=== PATIENT | male | born 1945 | race Hispanic/Latino ===

== ENCOUNTER 2020-06-17 16:46 | Observation (INO) | payer MEDICARE, OTHER ==
[~2020-06-17] VITALS: Ht 162.6 cm; Wt 77.1 kg
[2020-06-17] MEDS ORDERED: SODIUM CHLORIDE 0.9% 1000ML 1,000 ML IV STA (16:51)
--- NOTE | 2020-06-17 16:51 | Emergency Department Note ---
History of Present Illnes History of Present Illness History of Present Illness This is a 74 year old male with long h/o of PUD. Patient recently seen by [facility] with neg CT abd/pelvis scan. Patient with acute onset of GIB 2 days ago Historian: Patient Arrival Mode: Car Onset (how long ago): day(s) (2) Radiation: Reports non-radiation Severity: mild Onset quality: gradual Duration (how long): day(s) (2) Timing of current episode: constant Progression: unchanged Chronicity: new Context: Denies recent illness, Denies recent surgery, Denies recent immobilization, Denies recent travel, Denies trauma/injury, Denies new medications, Denies hx of DVT/PE, Denies non-compliance w/ medications, Denies other Relieving factors: none Exacerbating factors: none Associated symptoms: Reports weakness Previous service: tests performed, re-evaluation Past Medical/Family History Physician Review I have reviewed the patient's past medical and family history. Any updates have been documented here. Past Medical History Recent Fever: No Clinical Suspicion of Infectio: No New/Unexplained Change in Ment: No Past Medical History: Hypertension Past Surgical History: None Social History Smoking Cessation: Never Smoker Alcohol Use: None Any Illegal Drug Use: No Review of Systems Review of Systems Constitutional: Reports no symptoms EENTM: Reports no symptoms Cardiovascular: Reports no symptoms Respiratory: Reports no symptoms Gastrointestinal: Reports abdominal pain Genitourinary: Reports no symptoms Musculoskeletal: Reports no symptoms Integumentary: Reports no symptoms Neurological: Reports no symptoms Psychological: Reports no symptoms Endocrine: Reports no symptoms Hematological/Lymphatic: Reports no symptoms Physical Exam Related Data Allergies: Coded Allergies: Penicillins (Verified Allergy, Intermediate, hives/rash, 06/17/20) Triage Vital Signs Vital Signs Date Time Temp Pulse Resp B/P (MAP) Pulse Ox O2 Delivery O2 Flow Rate FiO2 06/17/20 17:01 98.6 85 16 128/62 96 Room Air 06/17/20 19:05 2.0 Vital signs reviewed: Yes Physical Exam CONSTITUTIONAL Constitutional: Present well-developed, Present obese HENT HENT: Present normocephalic, Present atraumatic, Present oropharynx clear/moist, Present nose normal HENT L/R: Present left ext ear normal, Present right ext ear normal EYES Eyes: Reports PERRL, Reports conjunctivae normal NECK Neck: Present ROM normal PULMONARY Pulmonary: Present effort normal, Present breath sounds normal CARDIOVASCULAR Cardiovascular: Present regular rhythm, Present heart sounds normal, Present capillary refill normal, Present normal rate GASTROINTESTINAL Abdominal: Present soft, Present distension, Present tender (LLQ) GENITOURINARY Genitourinary: Present exam deferred SKIN Skin: Present warm, Present dry MUSCULOSKELETAL Musculoskeletal: Present ROM normal NEUROLOGICAL Neurological: Present alert, Present oriented x 3, Present no gross motor or sensory deficits PSYCHOLOGICAL Psychological: Present mood/affect normal, Present judgement normal Results Laboratory Lab results reviewed: Yes Imaging Imaging results reviewed: Yes Impressions [place] [id number] Patient Name: CARSON DEE MR #: [id number] : 1945 Age/Sex: 74/M Req #: [id number] Adm Physician: Ordered by: SON BEEBE DO Report #: [id number] Location: ER Room/Bed: Procedure: [id number] DX/CHEST SINGLE (NOT PORTABLE) Exam Date: 06/17/20 Exam Time: 1724 REPORT STATUS: Signed EXAMINATION: CHEST SINGLE (NOT PORTABLE) INDICATION: Rectal bleeding. Upper abdominal discomfort ^ERMD ORDER ^[id number] ^1725 ^Y COMPARISON: None FINDINGS: TUBES and LINES: None. LUNGS: Lungs are well inflated. Lungs are clear. There is no evidence of pneumonia or pulmonary edema. PLEURA: No pleural effusion or pneumothorax. HEART AND MEDIASTINUM: The cardiomediastinal silhouette is unremarkable. BONES AND SOFT TISSUES: No acute osseous lesion. Soft tissues are unremarkable. UPPER ABDOMEN: Suspected retrocardiac hiatal hernia. IMPRESSION: Suspected retrocardiac hiatal hernia. Signed by: Dr. Venecia Morgan M.D. on 06/17/2020 5:44 PM Dictated By: VENECIA MORGAN MD, MD 43 Transcribed By: ESTUARDO on 06/17/201743 COPY TO: SON BEEBE DO~ [place] [address] Patient Name: CARSON DEE MR #: [id number] : 1945 Age/Sex: 74/M Req #: [id number] Adm Physician: Ordered by: SON BEEBE DO Report #: [id number] Location: ER Room/Bed: Procedure: [id number] CT/CTA ABD/PELVIS Exam Date: 06/17/20 Exam Time: 1809 REPORT STATUS: Signed EXAM: CTA OF THE ABDOMINAL AORTA AND PELVIC ARTERIES with and without IV contrast INDICATION: Rectal bleeding. Abdominal pain. Bright red blood per rectum. Left lower quadrant and flank pain. History of ulcer. COMPARISON: None. TECHNIQUE: Multi-detector CT technology was employed. CTA of the abdomen and pelvis was performed before and after the administration of IV contrast. IV CONTRAST: 100 mL of Isovue-370 ORAL CONTRAST: None COMPLICATIONS: None RADIATION DOSE: Total DLP: 2394 mGy*cm Estimated effective dose: (DLP x 0.015 x size factor) mSv CTDIvol has been reviewed. It is below the limits set by the Radiation Protocol Committee (RPC). For optimization of anatomic evaluation, multiplanar reconstruction, maximum intensity projections, and advanced 3-D off-line postprocessing were performed on a dedicated stand-alone workstation under the direct supervision of the interpreting physician. FINDINGS: Potential study limitations: None. VASCULAR WITH ADVANCED 3-D OFF-LINE POSTPROCESSING: No Abdominal aortic aneurysm is seen. The abdominal aorta is normal in course, caliber, and contour. There is no acute aortic pathology . Aortic plaques: Mild. The abdominal aorta measures: 2.8 cm at the supramesenteric segment 2.7 cm at the mesenteric segment 2.1 cm at the renal segment 1.8 cm at the mid infrarenal segment 1.6 cm at the aortic bifurcation. The celiac axis, SMA, and KARISHMA are patent. There are single renal arteries bilaterally, both of which appear patent. The pelvic arteries are normal in caliber and contour. There are mild atherosclerotic changes of the pelvic arteries. 1.2 cm at the right common iliac artery 0.9 cm at the right external iliac artery 1.2 cm at the left common iliac artery 0.9 cm at the left external iliac artery LOWER CHEST: Moderate size retrocardiac hiatal hernia. Mild chronic appearing change at the lung bases. ABDOMEN: Hypodensities scattered throughout the liver likely due to simple cysts. Hypodensities in the kidneys likely due to simple cysts. Fatty atrophy of the pancreas. The gallbladder and spleen appear normal. The adrenal glands appear normal. Both kidneys are normal in size, shape, and density. There is no abnormal mass or hydronephrosis. PELVIS: There is no significant retroperitoneal adenopathy. No free fluid or free air within the abdomen or pelvis. Scattered diverticulosis with mucosal thickening and inflammatory change in the region of the descending/sigmoid colon worrisome for early diverticulitis. No evidence of perforation or abscess. The urinary bladder appears normal. BONES: Unremarkable IMPRESSION: Scattered diverticulosis with mucosal thickening and inflammatory change in the region of the descending/sigmoid colon worrisome for early diverticulitis. No evidence of perforation or abscess. GI consultation recommended. No acute abdominal aortic pathology. Moderate size retrocardiac hiatal hernia. Signed by: Dr. Venecia Morgan M.D. on 06/17/2020 7:05 PM Dictated By: VENECIA MORGAN MD, MD 04 Transcribed By: ESTUARDO on 06/17/201904 COPY TO: SON BEEBE DO~ Procedures 12 Lead ECG Interpretation ECG Interpretation : ECG: ECG 1 Method Consultant: Interpreted by ED physician Date: Jun 17, 2020 Time: 18:37 Prior ECG tracings: reviewed Rhythm: sinus rhythm Rate: normal BPM: 89 QRS axis: normal ST segments normal: Yes T waves normal: Yes Clinical Impression: normal ECG Assessment & Plan Medical Decision Making MDM Diff Dx : GIB, varices, diverticulitis, ischemic blood ,hemorrhoids Reassessment Reassessment time: 18:37 Reassessment Patient returned from CT and noted to have oxygen desaturation to 88% on RA Assessment & Plan Final Impression: (1) Diverticulitis (2) Hypoxia Home Meds Reported Medications Ferrous Sulfate (FERROUS SULFATE) 325 Mg Tablet, 325 MG PO DAILY 06/20/20 Ciprofloxacin Hcl (CIPRO) 500 Mg Tablet, 500 MG PO BID for 7 Days, #14 TAB 06/20/20 Pantoprazole Sodium (PROTONIX) 20 Mg Tablet.dr, 40 MG PO DAILY, #30 TAB 06/18/20 Levothyroxine Sodium (LEVOTHYROXINE SODIUM) 112 Mcg Tablet, 125 MCG PO DAILY, #30 TAB 06/18/20 SON BEEBE DO Jun 17, 2020 16:51
[2020-06-17 17:28] LABS: BASOPHILS % 0.2 % (0.0-1.0); EOSINOPHILS # (AUTO) 0.2 (0.0-0.4); EOSINOPHILS % 1.8 % (0.0-6.0); HEMATOCRIT 31.7 % (38.2-49.6); HEMOGLOBIN 8.9 g/dL (14.0-18.0); LYMPHOCYTES # (AUTO) 1.7 (1.0-3.2); LYMPHOCYTES % 15.9 % (18.0-39.1); MEAN CORPUSCULAR HGB CONC 28.1 g/dL (31-35); MEAN CORPUSCULAR VOLUME 74.8 fL (81-99); MONOCYTES % 9.1 % (4.4-11.3); NEUTROPHILS # (AUTO) 7.7 (2.1-6.9); NEUTROPHILS % 72.5 % (38.7-80.0); PLATELET COUNT 251 x10e3/uL (140-360); RED BLOOD COUNT 4.24 x10e6/uL (4.3-5.7); RED CELL DISTRIBUTION WIDTH 16.4 % (11.7-14.4)
--- OUTSIDE RECORDS SUMMARY | 2020-06-17 17:36 | XMS REPORT | Continuity of Care Document ---
Author Author [facility] t Organization [facility] Address [address] [place] [address] Phone Unavailable Care Team Providers Care Insurance Writer Name Role Phone DR Jaison GTZ Attphygabriela Unavailable DR Jaison GTZ Admphys Unavailable Payers Payer Name Policy Type Policy Number Effective Date Expiration Date S ource Problems This patient has no known problems. Allergies, Adverse Reactions, Alerts Allergy Name Allergy Type Status Severity Reaction(s) Onset Date Inacti ve Date Treating Clinician Comments Source No Known Allergies DA Active U 2020-05-29 00:00:00 [facility] Penicillins DA Active U 2018-06-23 00:00:00 [facility] Penicillins DA Active U 2016-11-09 00:00:00 [facility] Medications This patient has no known medications. Procedures This patient has no known procedures. Encounters Start Date/Time End Date/Time Encounter Type Admission Type Attendi [facility] Care Department Encounter ID Source 2020-06-15 13:27:00 2020-06-15 17:03:00 Outpatient E LEODAN GTZ [facility] [id number] [facility] Results Test Description Test Time Test Comments Results Result Comments Source CBC (INCLUDES AUTOMATED DIFFERENTIAL) * 2020-06-15 16:49:00 Test Item WBC (test code = WBC) 15.8 10\\S\\3/uL 4.5-11.0 H RBC (test code = RBC) 4.77 10\\S\\6/uL 3.80-5.80 HGB (test code = HBG) 10.4 g/dL 14.0-18.0 L HCT (test code = HCT) 34.2 % 35.0-46.0 L MCV (test code = MCV) 71.8 fL 80.0-94.0 L MCH (test code = MCH) 21.8 pg 27.0-31.0 L MCHC (test code = MCHC) 30.4 g/dL 32.0-36.0 L RDW (test code = RDW) 16.0 % 11.5-14.5 H PLT (test code = PLT) 337 10\\S\\3/uL 130-400 MPV (test code = OMPV) 7.7 fL 6.2-10.2 NEUTROP # (test code = NE#) 14.1 10\\S\\3/uL 2.0-8.0 H LYMPH # (test code = LY#) 0.9 10\\S\\3/uL 1.2-4.0 L MID # (test code = GMID#) 0.8 10\\S\\3/uL 0.0-1.1 GRAN % (test code = GRA%) 89.0 % 35.0-73.0 H LYMPH % (test code = GLY%) 5.7 % 20.0-55.0 L MID % (test code = GMID%) 5.3 % 0.0-10.0 D-DIMER TRIAGE OW2020-06-15 14:45:00* Test Item Value Reference Range Interpretation Comments D-DIMER (test code = GDDI) 1200 ng/mL D-DU <=599 H D-DIMER COMMENT (test code = DDCOM) *Level to rule out DVT or PE: <235 ng/mL D-DU* GENERAL CHEMISTRY 13 *OW* [id number] 14:20:00* Test Item Value Reference Range Interpretation Comments GLUCOSE (test code = GGUL) 128 mg/dL 73-118 H BUN (test code = GBUN) 18 mg/dL 7-22 CREATININE (test code = GCRE) 0.8 mg/dL 0.6-1.2 URIC ACID (test code = GUA) 4.9 mg/dL 3.6-8.0 CALCIUM (test code = GCL+) 8.4 mg/dL 8.0-10.3 ALBUMIN (test code = GALB) 3.8 g/dL 3.5-5.5 PROTEIN (test code = GTP) 6.9 g/dL 6.4-8.1 ALT (test code = GALT) 11 U/L 10-47 AST (test code = CHAZ) 23 U/L 11-38 ALK PHOS (test code = GALP) 77 U/L 53-128 BILI TOTAL (test code = GTBIL) 0.6 mg/dL 0.2-1.6 GGT (test code = GGGT) 9 U/L 5-65 AMYLASE (test code = GAMY) 46 U/L 14-97 PROTHROMBIN TIME i-STAT OW2020-06-15 14:08:00* Test Item Value Reference Range Interpretation Comments PT (test code = PT1) <10.0 s 10.0-13.0 INR (test code = INR) 2.5 INRH (test code = INRH) SUGGESTED THERAPEU TIC RANGE FOR INR: 2.5 - 3.5 For Patients with Prosthetic Valves or Patients with recurrent Thromboembolic Events 2.0 - 3.0 For Most Other Applications TROPONIN I OW2020-06-15 14:08:00* Test Item Value Reference Range Interpretation Comments TROPONIN I (test code = A84) <0.050 ng/mL 0.000-0.050 MetyLyte 8 Panel *OW* [id number] 14:08:00* Test Item Value Reference Range Interpretation Comments GLUCOSE (test code = GGUL) 126 mg/dL 73-118 H BUN (test code = GBUN) 17 mg/dL 7-22 CREATININE (test code = GCRE) 1.1 mg/dL 0.6-1.2 CK TOTAL (test code = GCK) 67 U/L 39-380 SODIUM (test code = GNA+) 138 mmol/L 128-145 POTASSIUM (test code = GK+) 3.7 mmol/L 3.6-5.1 CHLORIDE (test code = GCL-) 108 mmol/L 98-108 TCO2 (test code = GTC02) 27 mmol/L 18-33 BRAIN NATRIURETIC PEPTIDE OW2020-06-15 14:04:00* Test Item Value Reference Range Interpretation Comments BNP (test code = OBNP) 5 pg/mL <=100 CBC (INCLUDES AUTOMATED DIFFERENTIAL) *2020-06-15 13:50:00* Test Item Value Reference Range Interpretation Comments WBC (test code = WBC) 12.7 10\\S\\3/uL 4.5-11.0 H RBC (test code = RBC) 4.91 10\\S\\6/uL 3.80-5.80 HGB (test code = HBG) 10.6 g/dL 14.0-18.0 L HCT (test code = HCT) 35.1 % 35.0-46.0 MCV (test code = MCV) 71.5 fL 80.0-94.0 L MCH (test code = MCH) 21.6 pg 27.0-31.0 L MCHC (test code = MCHC) 30.2 g/dL 32.0-36.0 L RDW (test code = RDW) 16.2 % 11.5-14.5 H PLT (test code = PLT) 327 10\\S\\3/uL 130-400 MPV (test code = OMPV) 8.0 fL 6.2-10.2 NEUTROP # (test code = NE#) 11.0 10\\S\\3/uL 2.0-8.0 H LYMPH # (test code = LY#) 1.0 10\\S\\3/uL 1.2-4.0 L MID # (test code = GMID#) 0.7 10\\S\\3/uL 0.0-1.1 GRAN % (test code = GRA%) 86.9 % 35.0-73.0 H LYMPH % (test code = GLY%) 7.7 % 20.0-55.0 L MID % (test code = GMID%) 5.4 % 0.0-10.0 - CT ABD PELVIS [id number] 21:13:00 Name: CARSON DEE [facility] : 1945 Age/S: 74 / M [address] Unit #: [id number] Loc: [place] [address] Phys: Tripp Da Silva MD Acct: [id number] Dis Date: Status: REG ER PHONE #: [phone] Exam Date: 05/29/20202057 FAX #: [phone] Reason: RLQ pain EXAMS: CPT CODE: [id number] CT ABD PELVIS W/CONT 42373 REASON FOR EXAM: RLQ pain EXAM ORDER DATE: 05/29/2020 7:53 PM Ordering: Tripp Da Silva MD Attending:Tripp Da Silva MD Location: PROCEDURE: - CT ABD PELVIS W/CONT COMPARISON: FINDINGS: CT images of the abdomen and pelvis were obtained with IV and without oral contrast at 5mm. Dose modulation, iterative reconstruction, and/or weight based adjustment of the MA/KV was utilized to reduce the radiation dose to as low as reasonably achievable. Intravenous contrast: 100cc of Omnipaque 370. The spleen, pancreas are grossly within normal limits. Multiple small hypodensities inin suggestive of hepatic cyst with the largest cyst in the right lobe measuring 3 cm The gallbladder is unremarkable by CT Small bilateral renal cysts (2 cm). The urinary bladder is unremarkable. The colon, small bowel, and stomach are within normal limits without evidence of obstruction. The appendix is unremarkable. No evidence of free air or free fluid. IMPRESSION: Moderate-sized hiatal hernia. Diffuse sigmoid colon diverticulosis without evidence of acute diverticulitis at 2113 Reported and signed by: Pato Liz M.D. PAGE 1 Signed Report (CONTINUED) Name: CARSON DEE [facility] : 1945 Age/S: 74 / M [address] [facility] Unit #: [id number] Loc: [place] [address] Phys: Tripp Da Silva MD Acct: [id number] Dis Date: Status: R EG ER PHONE #: [phone] Exam Date: 05/06 FAX #: [phone] Reason: RLQ pain EXAMS: CPT CODE: [id number] CT ABD PELVIS W/CONT 7 4177 <Continued> CC: Etienne Iqbal DO; Tripp Da Silva MD Technologist:Grecia Paul RT(R); ADRIAN Carter CTDI: DLP: Trnscb Date/Time: 05/29/2020 (2112) [email or web address] Orig Print D/T: S: 05/29/2020 (2115) PAGE 2 Signed Report - CT ABD PELVIS [id number] 21:13:00 Name: CARSON DEE [facility] : 1945 Age/S: 74 / M [address] Unit #: [id number] Loc: [place] [address] Phys: Tripp Da Silva MD Acct: [id number] Dis Date: Status: DEP ER PHONE #: [phone] Exam Date: 05/29/20202057 FAX #: [phone] Reason: RLQ pain EXAMS: CPT CODE: [id number] CT ABD PELVIS W/CONT 07434 REASON FOR EXAM: RLQ pain EXAM ORDER DATE: 05/29/2020 7:53 PM Ordering: Tripp Da Silva MD Attending:Tripp Da Silva MD Location: PROCEDURE: - CT ABD PELVIS W/CONT COMPARISON: FINDINGS: CT images of the abdomen and pelvis were obtained with IV and without oral contrast at 5mm. Dose modulation, iterative reconstruction, and/or weight based adjustment of the MA/KV was utilized to reduce the radiation dose to as low as reasonably achievable. Intravenous contrast: 100cc of Omnipaque 370. The spleen, pancreas are grossly within normal limits. Multiple small hypodensities inin suggestive of hepatic cyst with the largest cyst in the right lobe measuring 3 cm The gallbladder is unremarkable by CT Small bilateral renal cysts (2 cm). The urinary bladder is unremarkable. The colon, small bowel, and stomach are within normal limits without evidence of obstruction. The appendix is unremarkable. No evidence of free air or free fluid. IMPRESSION: Moderate-sized hiatal hernia. Diffuse sigmoid colon diverticulosis without evidence of acute diverticulitis at 2113 Reported and signed by: Pato Liz M.D. PAGE 1 Signed Report (CONTINUED) Name: CARSON DEE [facility] : 1945 Age/S: 74 / M [address] [facility] Unit #: [id number] Loc: [place] [address] Phys: Tripp Da Silva MD Acct: [id number] Dis Date: Status: D EP ER PHONE #: [phone] Exam Date: 05/06 FAX #: [phone] Reason: RLQ pain EXAMS: CPT CODE: [id number] CT ABD PELVIS W/CONT 7 417 <Continued> CC: Etienne Iqbal DO; Tripp Da Silva MD Technologist:Grecia Paul RT(R); ADRIAN Carter CTDI: DLP: Trnscb Date/Time: 05/29/2020 (2112) [email or web address] Orig Print D/T: S: 05/29/2020 (2115) PAGE 2 Signed Report BASIC METABOLIC [id number] 20:14:00* Test Item Value Reference Range Interpretation Comments SODIUM (test code = NA) 140 mmol/L 136-145 N POTASSIUM (test code = K) 3.9 mmol/L 3.5-5.1 N CHLORIDE (test code = CL) 106.0 mmol/L 98-107 N CARBON DIOXIDE (test code = CO2) 32.0 mmol/L 21-32 N ANION GAP (test code = GAP) 5.9 10-20 L GLUCOSE (test code = GLU) 97 mg/dL 74-106 N BLOOD UREA NITROGEN (test code = BUN) 13 mg/dL 7-18 N GLOMERULAR FILTRATION RATE (test code = GFR) > 60 mL/min >=60 Estimated GFR by using Modified MDRD formula.Chronic kidney disease is defined as either kidney damageor GFR <60 mL/min/1.73 m2 for >3 months. CREATININE (test code = CREAT) 0.80 mg/dL 0.7-1.3 N BUN/CREATININE RATIO (test code = BUN/CREA) 15.7 10-20 N CALCIUM (test code = CA) 8.5 mg/dL 8.5-10.1 N HEPATIC FUNCTION [id number] 20:14:00* Test Item Value Reference Range Interpretation Comments TOTAL PROTEIN (test code = PROT) 7.0 gram/dL 6.4-8.2 N ALBUMIN (test code = ALB) 3.3 g/dL 3.4-5.0 L GLOBULIN (test code = GLOB) 3.7 gram/dL 2.7-4.2 N ALBUMIN/GLOBULIN RATIO (test code = A/G) 0.9 0.75-1.50 N BILIRUBIN TOTAL (test code = BILT) 0.20 mg/dL 0.0-1.0 N BILIRUBIN DIRECT (test code = BILD) 0.07 mg/dL 0.0-0.20 N SGOT/AST (test code = AST) 15 IUnit/L 15-37 N SGPT/ALT (test code = ALT) 21 IUnit/L 12-78 N ALKALINE PHOSPHATASE TOTAL (test code = ALKP) 94 IUnit/L 45-117 N Note change in reference range due to change in reagent. [id number] 20:14:00* Test Item Value Reference Range Interpretation Comments LIPASE (test code = LIP) 118 U/L 73.0-393.0 N BASIC METABOLIC [id number] 20:07:00* Test Item Value Reference Range Interpretation Comments SODIUM (test code = NA) 140 mmol/L 136-145 N POTASSIUM (test code = K) 3.9 mmol/L 3.5-5.1 N CHLORIDE (test code = CL) 106.0 mmol/L 98-107 N CARBON DIOXIDE (test code = CO2) mmol/L 21-32 ANION GAP (test code = GAP) 10-20 GLUCOSE (test code = GLU) mg/dL 74-106 BLOOD UREA NITROGEN (test code = BUN) mg/dL 7-18 GLOMERULAR FILTRATION RATE (test code = GFR) mL/min >=60 CREATININE (test code = CREAT) mg/dL 0.7-1.3 BUN/CREATININE RATIO (test code = BUN/CREA) 10-20 CALCIUM (test code = CA) mg/dL 8.5-10.1 HEPATIC FUNCTION [id number] 20:07:00* Test Item Value Reference Range Interpretation Comments TOTAL PROTEIN (test code = PROT) gram/dL 6.4-8.2 ALBUMIN (test code = ALB) g/dL 3.4-5.0 GLOBULIN (test code = GLOB) gram/dL 2.7-4.2 ALBUMIN/GLOBULIN RATIO (test code = A/G) 0.75-1.50 BILIRUBIN TOTAL (test code = BILT) mg/dL 0.0-1.0 BILIRUBIN DIRECT (test code = BILD) mg/dL 0.0-0.20 SGOT/AST (test code = AST) IUnit/L 15-37 SGPT/ALT (test code = ALT) IUnit/L 12-78 ALKALINE PHOSPHATASE TOTAL (test code = ALKP) IUnit/L 45-117 [id number] 20:07:00* Test Item Value Reference Range Interpretation Comments LIPASE (test code = LIP) U/L 73.0-393.0 CBC W/O [id number] 20:01:00* Test Item Value Reference Range Interpretation Comments WHITE BLOOD CELL (test code = WBC) 6.5 K/mm3 4.5-12.5 N RED BLOOD CELL (test code = RBC) 4.74 mill/mm3 4.0-5.8 N HEMOGLOBIN (test code = HGB) 10.0 gram/dL 13.0-17.5 L HEMATOCRIT (test code = HCT) 35.6 % 42.0-52.0 L MEAN CELL VOLUME (test code = MCV) 75.1 fL 80-98 L MEAN CELL HGB (test code = MCH) 21.1 picogram 27.0-33.0 L MEAN CELL HGB CONCETRATION (test code = MCHC) 28.1 gram/dL 33.0-36. 0 L RED CELL DISTRIBUTION WIDTH (test code = RDW) 15.9 % 11.6-16. 2 N PLATELET COUNT (test code = PLT) 277 K/mm3 150-450 N MEAN PLATELET VOLUME (test code = MPV) 10.1 fL 6.7-11.0 N - XR CHEST 2 [id number] 10:00:00 Name: BIENVENIDO DEE [facility] : 1945 Age/S:73 /M [address] [facility] Unit#:[id number] Loc: [place] [address] Phys: Gerald De Los Santos MD Dis Date: PHONE #: [phone] Status: REG ER FAX #: [phone] Exam Date: 02/12/2019 Reason: cough EXAMS: CPT CODE: [id number] XR CHEST 2 V 06263 HISTORY: Cough. COMPARISON: September 16, 2017. AP and lateral view of the chest: No acute infiltrates, effusion or congestion. Cardiac and the mediastinal silhouette are normal. Scarring. Moderate sized retrocardiac hiatal hernia with air-fluid level. DJD of the dorsal spine. IMPRESSION: No acute infiltrates, effusion or congestion. Moderate retrocardiac hiatal hernia with air-fluid level. at 1000 Reported and signed by: Demarco Manzo M.D. CC: Gerald De Los Santos MD Technologist: Nithya Mtz Trnscrpt Data: 02/12/2019 (1000) [email or web address] Orig Print D/T: S: 02/12/2019 (1003) PAGE 1 Signed Report URINALYSIS COMPLETE 2018-11-05 11:53:00* Test Item Value Reference Range Interpretation Comments UA COLOR (test code = COLU) YELLOW YELLOW UA APPEARANCE (test code = APPU) CLEAR CLEAR UA GLUCOSE DIPSTICK (test code = DGLUU) NORMAL mg/dL NEGATIVE UA BILIRUBIN DIPSTICK (test code = BILU) NEGATIVE mg/dL NEGATIVE UA KETONE DIPSTICK (test code = KETU) neg mg/dL NEGATIVE UA SPECIFIC GRAVITY (test code = SGU) 1.005 1.001-1.035 UA BLOOD DIPSTICK (test code = MARION) 25 (1+) Clayton/uL NEGATIVE A UA PH DIPSTICK (test code = SHIRAZ) 7.0 5.0-8.0 UA PROTEIN DIPSTICK (test code = PROU) neg mg/dL Neg-15 UA UROBILINIOGEN DIPSTICK (test code = URO) norm mg/dL 0.0-0.2 UA NITRITE DIPSTICK (test code = MARIE) NEGATIVE NEGATIVE UA LEUKOCYTE ESTERASE DIPSTICK (test code = LEUU) NEGATIVE uL NEGA TIVE UA WBC (test code = WBCU) NONE SEEN per HPF 0-5 IN SOME URINARY TRACT INFECTIONS THERE MAY NOT BE ENOUGHWBCs IN THE URINE TO TRIGGER AN AUTOMATIC (REFLEX) URINECULTURE. A SEPERATE ORDER FOR URINE CULTURE IS RECOMMENDEDIF THERE IS STRONG SUPPORT FOR A URINARY TRACT INFECTIONCLINICALLY. UA RBC (test code = RBCU) 3-5 per HPF 0-5 A UA EPITHELIAL CELLS (test code = EPIU) Rare (0-1/hpf) per HPF Few UA BACTERIA (test code = BACU) TRACE per HPF NONE URINALYSIS W/O [id number] 11:53:00* Test Item Value Reference Range Interpretation Comments UA MICROSCOPIC NEEDED? (test code = UAMICRO) YES URINALYSIS [id number] 11:41:00* Test Item Value Reference Range Interpretation Comments UA COLOR (test code = COLU) YELLOW YELLOW UA APPEARANCE (test code = APPU) CLEAR UA GLUCOSE DIPSTICK (test code = DGLUU) NORMAL mg/dL NEGATIVE UA BILIRUBIN DIPSTICK (test code = BILU) NEGATIVE mg/dL NEGATIVE UA KETONE DIPSTICK (test code = KETU) neg mg/dL NEGATIVE UA SPECIFIC GRAVITY (test code = SGU) 1.005 1.001-1.035 UA BLOOD DIPSTICK (test code = MARION) 25 (1+) Clayton/uL NEGATIVE A UA PH DIPSTICK (test code = SHIRAZ) 7.0 5.0-8.0 UA PROTEIN DIPSTICK (test code = PROU) neg mg/dL Neg-15 UA UROBILINIOGEN DIPSTICK (test code = URO) norm mg/dL 0.0-0.2 UA NITRITE DIPSTICK (test code = MARIE) NEGATIVE NEGATIVE UA LEUKOCYTE ESTERASE DIPSTICK (test code = LEUU) NEGATIVE uL NEGA TIVE UA WBC (test code = WBCU) per HPF 0-5 URINALYSIS W/O [id number] 11:41:00* Test Item Value Reference Range Interpretation Comments UA MICROSCOPIC NEEDED? (test code = UAMICRO) URINALYSIS [id number] 11:41:00* Test Item Value Reference Range Interpretation Comments UA COLOR (test code = COLU) YELLOW YELLOW UA APPEARANCE (test code = APPU) CLEAR UA GLUCOSE DIPSTICK (test code = DGLUU) NORMAL mg/dL NEGATIVE UA BILIRUBIN DIPSTICK (test code = BILU) NEGATIVE mg/dL NEGATIVE UA KETONE DIPSTICK (test code = KETU) neg mg/dL NEGATIVE UA SPECIFIC GRAVITY (test code = SGU) 1.005 1.001-1.035 UA BLOOD DIPSTICK (test code = MARION) 25 (1+) Clayton/uL NEGATIVE A UA PH DIPSTICK (test code = SHIRAZ) 7.0 5.0-8.0 UA PROTEIN DIPSTICK (test code = PROU) neg mg/dL Neg-15 UA UROBILINIOGEN DIPSTICK (test code = URO) norm mg/dL 0.0-0.2 UA NITRITE DIPSTICK (test code = MARIE) NEGATIVE NEGATIVE UA LEUKOCYTE ESTERASE DIPSTICK (test code = LEUU) NEGATIVE uL NEGA TIVE UA WBC (test code = WBCU) per HPF 0-5 URINALYSIS W/O [id number] 11:41:00* Test Item Value Reference Range Interpretation Comments UA MICROSCOPIC NEEDED? (test code = UAMICRO) - CT HEAD/BRAIN W/O [id number] 11:10:00 Name: CARSON DEE [facility] : 1945 Age/S: 73 / M [address] [facility] Unit #: [id number] Loc: [place] [address] Phys: Gerald De Los Santos MD Acct: [id number] Dis Date: Status: PRE ER PHONE #: [phone] Exam Date: 11/05/2018 1103 FAX #: [phone] Reason: dizzy EXAMS: CPT CODE: [id number] CT HEAD/BRAIN W/O CONT 35788 HISTORY: Dizziness. COMPARISON: None available. CT brain without contrast: Automated exposure control. No acute intracranial bleeds or extra-axial collections are noted. No acute territorial vascular infarction is noted. The sulci, gyri, ventricles and subarachnoid spaces and the basilar cisterns are normal for patient's age. No herniation or hydrocephalus or midline shift is noted. Mild periventricular ischemic gliosis is noted. Age-appropriate atrophy is noted as well. Portions of the visualized paranasal sinuses are normal. No obvious bony calvarial defect is noted. IMPRESSION: No acute intracranial bleeds or extra-axial collections. No acute territorial vascular infarction. No herniation or hydroceph alus or midline shift. 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 at 1110 Reported and signed by: Junior Manzo M.D. CC: Gerald De Los Santos MD Technologist:Nithya Mtz CTDI: DLP: Trnscb Date/Time: 11/05/2018 (1110) [id number] Orig Print D/T: S: 11/05/2018 (1498) CTDI: DLP: PAGE 1 Signed Report COMPREHENSIVE METABOLIC PANEL 2018-11-05 11:04:00* Test Item Value Reference Range Interpretation Comments SODIUM (test code = NA) 141 mmol/L 135-148 N POTASSIUM (test code = K) 3.9 mmol/L 3.5-5.1 N CHLORIDE (test code = CL) 105 mmol/L 101-109 N CARBON DIOXIDE (test code = CO2) 29.9 mmol/L 21-32 N ANION GAP (test code = GAP) 10 mmol/L 10-20 N GLUCOSE (test code = GLU) 84 mg/dL 74-106 N BLOOD UREA NITROGEN (test code = BUN) 17 mg/dL 3-21 N CREATININE (test code = CREAT) 0.90 mg/dL 0.55-1.3 N BUN/CREATININE RATIO (test code = BUN/CREA) 18.9 10-20 N TOTAL PROTEIN (test code = PROT) 7.1 g/dL 6.5-8.4 N ALBUMIN (test code = ALB) 3.4 g/dL 3.4-4.8 N GLOBULIN (test code = GLOB) 3.7 G/DL 1-10 N ALBUMIN/GLOBULIN RATIO (test code = A/G) 0.9 RATIO 0.75-1.50 N CALCIUM (test code = CA) 8.3 mg/dL 8.4-10.2 L BILIRUBIN TOTAL (test code = BILT) 0.40 mg/dL 0.0-1.0 N SGOT/AST (test code = AST) 25 U/L 6-32 N SGPT/ALT (test code = ALT) 26 U/L 12-78 N N ote: Change in REFERENCE RANGE due to new reagent method. ALKALINE PHOSPHATASE TOTAL (test code = ALKP) 82 U/L 38-126 N [id number] 11:04:00* Test Item Value Reference Range Interpretation Comments TROPONIN-I (test code = TROPI) 0.05 ng/mL 0.00-0.056 N CBC W/AUTO [id number] 11:03:00* Test Item Value Reference Range Interpretation Comments WHITE BLOOD CELL (test code = WBC) 6.4 K/mm3 4.5-12.5 N RED BLOOD CELL (test code = RBC) 4.52 mill/mm3 4.0-5.8 N HEMOGLOBIN (test code = HGB) 9.0 gram/dL 13.0-17.5 L HEMATOCRIT (test code = HCT) 31.2 % 42.0-52.0 L MEAN CELL VOLUME (test code = MCV) 69.0 fL 80-98 L MEAN CELL HGB (test code = MCH) 19.9 picogram 27.0-33.0 L MEAN CELL HGB CONCETRATION (test code = MCHC) 28.8 gram/dL 33.0-36. 0 L RED CELL DISTRIBUTION WIDTH (test code = RDW) 17.9 % 11.6-16. 2 H RED CELL DISTRIBUTION WIDTH SD (test code = RDW-SD) 44.3 fL 39 .2-49.5 N PLATELET COUNT (test code = PLT) 287 K/mm3 150-450 N MEAN PLATELET VOLUME (test code = MPV) 9.7 fL 6.7-11.0 N NEUTROPHIL % (test code = NT%) 61.3 % 39.0-69.0 N LYMPHOCYTE % (test code = LY%) 25.0 % 25.0-55.0 N MONOCYTE % (test code = MO%) 11.2 % 0.0-10.0 H EOSINOPHIL % (test code = EO%) 2.3 % 0.0-5.0 N BASOPHIL % (test code = BA%) 0.2 % 0.0-1.0 N NEUTROPHIL # (test code = NT#) 3.94 K/mm3 1.8-7.7 N LYMPHOCYTE # (test code = LY#) 1.61 K/mm3 1.0-5.0 N MONOCYTE # (test code = MO#) 0.72 K/mm3 0-0.8 N EOSINOPHIL # (test code = EO#) 0.15 K/mm3 0.0-0.5 N BASOPHIL # (test code = BA#) 0.01 K/mm3 0.0-0.2 N MANUAL DIFF REQUIRED (test code = MDIFF) NO, ONLY SCAN NEEDED DIFFERENTIAL [id number] 11:03:00* Test Item Value Reference Range Interpretation Comments STAIN ACCEPTABILITY (test code = STN ACCEPTABLE) STAIN ACCEPTABLE HYPOCHROMIA (test code = HYPO) 1+ POIKILOCYTOSIS (test code = POIK) 1+ ANISOCYTOSIS (test code = ANISO) 1+ MICROCYTOSIS (test code = MICR) 1+ ELLIPTOCYTES (test code = ELL) 1+ PLATELET ESTIMATE (test code = PLTEST) ADEQUATE PLATELET MORPHOLOGY (test code = PLTMORPH) SIZE VARIABLE CBC W/AUTO [id number] 11:02:00* Test Item Value Reference Range Interpretation Comments WHITE BLOOD CELL (test code = WBC) 6.4 K/mm3 4.5-12.5 N RED BLOOD CELL (test code = RBC) 4.52 mill/mm3 4.0-5.8 N HEMOGLOBIN (test code = HGB) 9.0 gram/dL 13.0-17.5 L HEMATOCRIT (test code = HCT) 31.2 % 42.0-52.0 L MEAN CELL VOLUME (test code = MCV) 69.0 fL 80-98 L MEAN CELL HGB (test code = MCH) 19.9 picogram 27.0-33.0 L MEAN CELL HGB CONCETRATION (test code = MCHC) 28.8 gram/dL 33.0-36. 0 L RED CELL DISTRIBUTION WIDTH (test code = RDW) 17.9 % 11.6-16. 2 H RED CELL DISTRIBUTION WIDTH SD (test code = RDW-SD) 44.3 fL 39 .2-49.5 N PLATELET COUNT (test code = PLT) 287 K/mm3 150-450 N MEAN PLATELET VOLUME (test code = MPV) 9.7 fL 6.7-11.0 N NEUTROPHIL % (test code = NT%) 61.3 % 39.0-69.0 N LYMPHOCYTE % (test code = LY%) 25.0 % 25.0-55.0 N MONOCYTE % (test code = MO%) 11.2 % 0.0-10.0 H EOSINOPHIL % (test code = EO%) 2.3 % 0.0-5.0 N BASOPHIL % (test code = BA%) 0.2 % 0.0-1.0 N NEUTROPHIL # (test code = NT#) 3.94 K/mm3 1.8-7.7 N LYMPHOCYTE # (test code = LY#) 1.61 K/mm3 1.0-5.0 N MONOCYTE # (test code = MO#) 0.72 K/mm3 0-0.8 N EOSINOPHIL # (test code = EO#) 0.15 K/mm3 0.0-0.5 N BASOPHIL # (test code = BA#) 0.01 K/mm3 0.0-0.2 N MANUAL DIFF REQUIRED (test code = MDIFF) NO, ONLY SCAN NEEDED DIFFERENTIAL [id number] 11:02:00* Test Item Value Reference Range Interpretation Comments STAIN ACCEPTABILITY (test code = STN ACCEPTABLE) HYPOCHROMIA (test code = HYPO) POIKILOCYTOSIS (test code = POIK) ANISOCYTOSIS (test code = ANISO) MICROCYTOSIS (test code = MICR) PLATELET ESTIMATE (test code = PLTEST) PLATELET MORPHOLOGY (test code = PLTMORPH) COMPREHENSIVE METABOLIC [id number] 10:49:00* Test Item Value Reference Range Interpretation Comments SODIUM (test code = NA) 141 mmol/L 135-148 N POTASSIUM (test code = K) 3.9 mmol/L 3.5-5.1 N CHLORIDE (test code = CL) 105 mmol/L 101-109 N CARBON DIOXIDE (test code = CO2) 29.9 mmol/L 21-32 N ANION GAP (test code = GAP) 10 mmol/L 10-20 N GLUCOSE (test code = GLU) 84 mg/dL 74-106 N BLOOD UREA NITROGEN (test code = BUN) 17 mg/dL 3-21 N CREATININE (test code = CREAT) 0.90 mg/dL 0.55-1.3 N BUN/CREATININE RATIO (test code = BUN/CREA) 18.9 10-20 N TOTAL PROTEIN (test code = PROT) gram/dL 6.4-8.2 ALBUMIN (test code = ALB) g/dL 3.4-5.0 GLOBULIN (test code = GLOB) g/dL 2.7-4.2 ALBUMIN/GLOBULIN RATIO (test code = A/G) 0.75-1.50 CALCIUM (test code = CA) 8.3 mg/dL 8.4-10.2 L BILIRUBIN TOTAL (test code = BILT) mg/dL 0.2-1.2 SGOT/AST (test code = AST) IUnit/L 15-37 SGPT/ALT (test code = ALT) U/L 10-69 ALKALINE PHOSPHATASE TOTAL (test code = ALKP) IUnit/L 45-117 [id number] 10:49:00* Test Item Value Reference Range Interpretation Comments TROPONIN-I (test code = TROPI) ng/mL 0-0.045 CBC W/AUTO [id number] 10:44:00* Test Item Value Reference Range Interpretation Comments WHITE BLOOD CELL (test code = WBC) 6.4 K/mm3 4.5-12.5 N RED BLOOD CELL (test code = RBC) 4.52 mill/mm3 4.0-5.8 N HEMOGLOBIN (test code = HGB) 9.0 gram/dL 13.0-17.5 L HEMATOCRIT (test code = HCT) 31.2 % 42.0-52.0 L MEAN CELL VOLUME (test code = MCV) 69.0 fL 80-98 L MEAN CELL HGB (test code = MCH) 19.9 picogram 27.0-33.0 L MEAN CELL HGB CONCETRATION (test code = MCHC) 28.8 gram/dL 33.0-36. 0 L RED CELL DISTRIBUTION WIDTH (test code = RDW) 17.9 % 11.6-16. 2 H RED CELL DISTRIBUTION WIDTH SD (test code = RDW-SD) 44.3 fL 39 .2-49.5 N PLATELET COUNT (test code = PLT) 287 K/mm3 150-450 N MEAN PLATELET VOLUME (test code = MPV) 9.7 fL 6.7-11.0 N NEUTROPHIL % (test code = NT%) 61.3 % 39.0-69.0 N LYMPHOCYTE % (test code = LY%) 25.0 % 25.0-55.0 N MONOCYTE % (test code = MO%) 11.2 % 0.0-10.0 H EOSINOPHIL % (test code = EO%) 2.3 % 0.0-5.0 N BASOPHIL % (test code = BA%) 0.2 % 0.0-1.0 N NEUTROPHIL # (test code = NT#) 3.94 K/mm3 1.8-7.7 N LYMPHOCYTE # (test code = LY#) 1.61 K/mm3 1.0-5.0 N MONOCYTE # (test code = MO#) 0.72 K/mm3 0-0.8 N EOSINOPHIL # (test code = EO#) 0.15 K/mm3 0.0-0.5 N BASOPHIL # (test code = BA#) 0.01 K/mm3 0.0-0.2 N MANUAL DIFF REQUIRED (test code = MDIFF) NO, ONLY SCAN NEEDED DIFFERENTIAL [id number] 10:44:00* Test Item Value Reference Range Interpretation Comments STAIN ACCEPTABILITY (test code = STN ACCEPTABLE) CABOT RINGS (test code = CAB) MORPHOLOGY COMMENT (test code = MOC) PLATELET ESTIMATE (test code = PLTEST) PLATELET MORPHOLOGY (test code = PLTMORPH) CBC W/AUTO [id number] 10:44:00* Test Item Value Reference Range Interpretation Comments WHITE BLOOD CELL (test code = WBC) 6.4 K/mm3 4.5-12.5 N RED BLOOD CELL (test code = RBC) 4.52 mill/mm3 4.0-5.8 N HEMOGLOBIN (test code = HGB) 9.0 gram/dL 13.0-17.5 L HEMATOCRIT (test code = HCT) 31.2 % 42.0-52.0 L MEAN CELL VOLUME (test code = MCV) 69.0 fL 80-98 L MEAN CELL HGB (test code = MCH) 19.9 picogram 27.0-33.0 L MEAN CELL HGB CONCETRATION (test code = MCHC) 28.8 gram/dL 33.0-36. 0 L RED CELL DISTRIBUTION WIDTH (test code = RDW) 17.9 % 11.6-16. 2 H RED CELL DISTRIBUTION WIDTH SD (test code = RDW-SD) 44.3 fL 39 .2-49.5 N PLATELET COUNT (test code = PLT) 287 K/mm3 150-450 N MEAN PLATELET VOLUME (test code = MPV) 9.7 fL 6.7-11.0 N NEUTROPHIL % (test code = NT%) 61.3 % 39.0-69.0 N LYMPHOCYTE % (test code = LY%) 25.0 % 25.0-55.0 N MONOCYTE % (test code = MO%) 11.2 % 0.0-10.0 H EOSINOPHIL % (test code = EO%) 2.3 % 0.0-5.0 N BASOPHIL % (test code = BA%) 0.2 % 0.0-1.0 N NEUTROPHIL # (test code = NT#) 3.94 K/mm3 1.8-7.7 N LYMPHOCYTE # (test code = LY#) 1.61 K/mm3 1.0-5.0 N MONOCYTE # (test code = MO#) 0.72 K/mm3 0-0.8 N EOSINOPHIL # (test code = EO#) 0.15 K/mm3 0.0-0.5 N BASOPHIL # (test code = BA#) 0.01 K/mm3 0.0-0.2 N MANUAL DIFF REQUIRED (test code = MDIFF) NO, ONLY SCAN NEEDED DIFFERENTIAL [id number] 10:44:00* Test Item Value Reference Range Interpretation Comments STAIN ACCEPTABILITY (test code = STN ACCEPTABLE) CABOT RINGS (test code = CAB) MORPHOLOGY COMMENT (test code = MOC) PLATELET ESTIMATE (test code = PLTEST) PLATELET MORPHOLOGY (test code = PLTMORPH) CBC W/AUTO [id number] 10:44:00* Test Item Value Reference Range Interpretation Comments WHITE BLOOD CELL (test code = WBC) 6.4 K/mm3 4.5-12.5 N RED BLOOD CELL (test code = RBC) 4.52 mill/mm3 4.0-5.8 N HEMOGLOBIN (test code = HGB) 9.0 gram/dL 13.0-17.5 L HEMATOCRIT (test code = HCT) 31.2 % 42.0-52.0 L MEAN CELL VOLUME (test code = MCV) 69.0 fL 80-98 L MEAN CELL HGB (test code = MCH) 19.9 picogram 27.0-33.0 L MEAN CELL HGB CONCETRATION (test code = MCHC) 28.8 gram/dL 33.0-36. 0 L RED CELL DISTRIBUTION WIDTH (test code = RDW) 17.9 % 11.6-16. 2 H RED CELL DISTRIBUTION WIDTH SD (test code = RDW-SD) 44.3 fL 39 .2-49.5 N PLATELET COUNT (test code = PLT) 287 K/mm3 150-450 N MEAN PLATELET VOLUME (test code = MPV) 9.7 fL 6.7-11.0 N NEUTROPHIL % (test code = NT%) 61.3 % 39.0-69.0 N LYMPHOCYTE % (test code = LY%) 25.0 % 25.0-55.0 N MONOCYTE % (test code = MO%) 11.2 % 0.0-10.0 H EOSINOPHIL % (test code = EO%) 2.3 % 0.0-5.0 N BASOPHIL % (test code = BA%) 0.2 % 0.0-1.0 N NEUTROPHIL # (test code = NT#) 3.94 K/mm3 1.8-7.7 N LYMPHOCYTE # (test code = LY#) 1.61 K/mm3 1.0-5.0 N MONOCYTE # (test code = MO#) 0.72 K/mm3 0-0.8 N EOSINOPHIL # (test code = EO#) 0.15 K/mm3 0.0-0.5 N BASOPHIL # (test code = BA#) 0.01 K/mm3 0.0-0.2 N MANUAL DIFF REQUIRED (test code = MDIFF) NO, ONLY SCAN NEEDED DIFFERENTIAL [id number] 10:44:00* Test Item Value Reference Range Interpretation Comments STAIN ACCEPTABILITY (test code = STN ACCEPTABLE) MORPHOLOGY COMMENT (test code = MOC) PLATELET ESTIMATE (test code = PLTEST) PLATELET MORPHOLOGY (test code = PLTMORPH) CBC W/AUTO [id number] 10:44:00* Test Item Value Reference Range Interpretation Comments WHITE BLOOD CELL (test code = WBC) 6.4 K/mm3 4.5-12.5 N RED BLOOD CELL (test code = RBC) 4.52 mill/mm3 4.0-5.8 N HEMOGLOBIN (test code = HGB) 9.0 gram/dL 13.0-17.5 L HEMATOCRIT (test code = HCT) 31.2 % 42.0-52.0 L MEAN CELL VOLUME (test code = MCV) 69.0 fL 80-98 L MEAN CELL HGB (test code = MCH) 19.9 picogram 27.0-33.0 L MEAN CELL HGB CONCETRATION (test code = MCHC) 28.8 gram/dL 33.0-36. 0 L RED CELL DISTRIBUTION WIDTH (test code = RDW) 17.9 % 11.6-16. 2 H RED CELL DISTRIBUTION WIDTH SD (test code = RDW-SD) 44.3 fL 39 .2-49.5 N PLATELET COUNT (test code = PLT) 287 K/mm3 150-450 N MEAN PLATELET VOLUME (test code = MPV) 9.7 fL 6.7-11.0 N NEUTROPHIL % (test code = NT%) 61.3 % 39.0-69.0 N LYMPHOCYTE % (test code = LY%) 25.0 % 25.0-55.0 N MONOCYTE % (test code = MO%) 11.2 % 0.0-10.0 H EOSINOPHIL % (test code = EO%) 2.3 % 0.0-5.0 N BASOPHIL % (test code = BA%) 0.2 % 0.0-1.0 N NEUTROPHIL # (test code = NT#) 3.94 K/mm3 1.8-7.7 N LYMPHOCYTE # (test code = LY#) 1.61 K/mm3 1.0-5.0 N MONOCYTE # (test code = MO#) 0.72 K/mm3 0-0.8 N EOSINOPHIL # (test code = EO#) 0.15 K/mm3 0.0-0.5 N BASOPHIL # (test code = BA#) 0.01 K/mm3 0.0-0.2 N MANUAL DIFF REQUIRED (test code = MDIFF) NO, ONLY SCAN NEEDED DIFFERENTIAL [id number] 10:44:00* Test Item Value Reference Range Interpretation Comments STAIN ACCEPTABILITY (test code = STN ACCEPTABLE) CABOT RINGS (test code = CAB) MORPHOLOGY COMMENT (test code = MOC) PLATELET ESTIMATE (test code = PLTEST) PLATELET MORPHOLOGY (test code = PLTMORPH) GASTRIC,[id number] 13:43:00 RUN DATE: 05/30/18 [employer] PAGE 1 RUN TIME: 1343 Specimen Inqui ry RUN USER: INTERFACE PATIENT: CARSON DEE ACCT #: [id number] LOC: [facility] U #: [id number] AGE/SX: 72/M ROOM: [facility] RE05/27/18[facility] DR: Joseluis Jang MD : 45 BED: B DIS: STATUS: ADM IN TLOC: SPEC #: [id number] RECD: 05/29/18 STATUS: SOUT RE #: [id number] [place]: 05/28/18-[address] [facility] [address]: Carla Jackson MD ENTERED: 05/29/18 SP TYPE: GASTRIC BX OTHR DR: Jasper Shoemaker i, MD, Toby C DOORDERED: GROSS COPIES TO: Jasper Stanford MD [address] [place] [address] Etienne Iqbal DO [address] [place], [place] [id number] Carla Jackson MD [address] [place] [address] PROCEDURES: GROSS (05/30/18-1311) TISSUES: ANTRUM - BX CLINICAL HISTORY COLLECTION DATE: 05/28 UPPER GI BLEED FINAL DIAGNOSIS Gastric antrum/body, biopsy: COMPATIBLE WITH REACTIVE GASTROPATHY NEGATIVE FOR INTESTINAL META PLASIA NEGATIVE FOR HELICOBACTER ORGANISMS NEGATIVE FOR MALIGNANCY RRB/alex D 68230, [id number] CONTINU ED ON NEXT PAGE RUN DATE: 05/30/18 [facility] RUN TIME: 1343 Specimen Inquiry RUN USER: INTERFACE SPEC #: [id number] PAT IENT: CARSON DEE #[id number] (Continued) MACROSCOPIC The specimen is received in formalin, labeled with the pat ient's name, identified as "antrum/body bx", and consists of multiple troy biop sy tissue measuring 0.8 cm in aggregate, entirely submitted for H E and Giemsa stains. GROSS PERFORMED AT [facility] [address] [place] [address] (p)[phone] MICROSCOP IC MICROSCOPIC PERFORMED AT [facility] All of the stains, inclu ding any controls performed, stain appropriately. [facility] [address] [facility] [place] [address] (p)[phone] PERFORMING S ITE Diagnosis performed at: [facility] [address] [id number] S igned SIGNATURE ON FILE Cristopher Peacock 05/30/18 1343 END OF REPORT * *
[2020-06-17 17:43] LABS: ALANINE AMINOTRANSFERASE 10 IU/L (0-55); ALBUMIN 3.1 g/dL (3.5-5.0); ALKALINE PHOSPHATASE 62 IU/L (40-150); ANION GAP 13.6 mmol/L (8-16); BLOOD UREA NITROGEN 10 mg/dL (7-26); BUN/CREATININE RATIO 12 (6-25); CARBON DIOXIDE 27 mmol/L (22-29); CHLORIDE 102 mmol/L (98-107); CREATINE KINASE 58 IU/L (30-200); CREATININE, SERUM 0.86 mg/dL (0.72-1.25); EST GLOMERULAR FILTRATION RATE > 60 ML/MIN (60-); GLUCOSE 102 mg/dL (74-118); POTASSIUM 3.6 mmol/L (3.5-5.1); SODIUM 139 mmol/L (136-145)
--- NOTE | 2020-06-17 17:48 | Diagnostic Imaging Report ---
EXAMINATION: CHEST SINGLE (NOT PORTABLE) INDICATION: Rectal bleeding. Upper abdominal discomfort ^ERMD ORDER ^[id number] ^1725 ^Y COMPARISON: None FINDINGS: TUBES and LINES: None. LUNGS: Lungs are well inflated. Lungs are clear. There is no evidence of pneumonia or pulmonary edema. PLEURA: No pleural effusion or pneumothorax. HEART AND MEDIASTINUM: The cardiomediastinal silhouette is unremarkable. BONES AND SOFT TISSUES: No acute osseous lesion. Soft tissues are unremarkable. UPPER ABDOMEN: Suspected retrocardiac hiatal hernia. IMPRESSION: Suspected retrocardiac hiatal hernia. Signed by: Dr. Harpreet Morgan M.D. on 06/17/2020 5:44 PM
[2020-06-17 18:00] LABS: LIPASE 21 U/L (8-78)
[2020-06-17] MEDS ORDERED: SODIUM CHLORIDE 0.9% 100 ML ONE (18:01)
[2020-06-17] MEDS ORDERED: IOPAMIDOL 370 MG/ML 200 ML INFUS..BTL INJ ONE (18:01)
--- NOTE | 2020-06-17 18:52 | NUR ---
RT Called for ABG Draw
--- NOTE | 2020-06-17 19:03 | NUR ---
Report given to Vanessa Ortiz RN
--- NOTE | 2020-06-17 19:08 | Diagnostic Imaging Report ---
EXAM: CTA OF THE ABDOMINAL AORTA AND PELVIC ARTERIES with and without IV contrast INDICATION: Rectal bleeding. Abdominal pain. Bright red blood per rectum. Left lower quadrant and flank pain. History of ulcer. COMPARISON: None. TECHNIQUE: Multi-detector CT technology was employed. CTA of the abdomen and pelvis was performed before and after the administration of IV contrast. IV CONTRAST: 100 mL of Isovue-370 ORAL CONTRAST: None COMPLICATIONS: None RADIATION DOSE: Total DLP: 2394 mGy*cm Estimated effective dose: (DLP x 0.015 x size factor) mSv CTDIvol has been reviewed. It is below the limits set by the Radiation Protocol Committee (RPC). For optimization of anatomic evaluation, multiplanar reconstruction, maximum intensity projections, and advanced 3-D off-line postprocessing were performed on a dedicated stand-alone workstation under the direct supervision of the interpreting physician. FINDINGS: Potential study limitations: None. VASCULAR WITH ADVANCED 3-D OFF-LINE POSTPROCESSING: No Abdominal aortic aneurysm is seen. The abdominal aorta is normal in course, caliber, and contour. There is no acute aortic pathology . Aortic plaques: Mild. The abdominal aorta measures: 2.8 cm at the supramesenteric segment 2.7 cm at the mesenteric segment 2.1 cm at the renal segment 1.8 cm at the mid infrarenal segment 1.6 cm at the aortic bifurcation. The celiac axis, SMA, and KARISHMA are patent. There are single renal arteries bilaterally, both of which appear patent. The pelvic arteries are normal in caliber and contour. There are mild atherosclerotic changes of the pelvic arteries. 1.2 cm at the right common iliac artery 0.9 cm at the right external iliac artery 1.2 cm at the left common iliac artery 0.9 cm at the left external iliac artery LOWER CHEST: Moderate size retrocardiac hiatal hernia. Mild chronic appearing change at the lung bases. ABDOMEN: Hypodensities scattered throughout the liver likely due to simple cysts. Hypodensities in the kidneys likely due to simple cysts. Fatty atrophy of the pancreas. The gallbladder and spleen appear normal. The adrenal glands appear normal. Both kidneys are normal in size, shape, and density. There is no abnormal mass or hydronephrosis. PELVIS: There is no significant retroperitoneal adenopathy. No free fluid or free air within the abdomen or pelvis. Scattered diverticulosis with mucosal thickening and inflammatory change in the region of the descending/sigmoid colon worrisome for early diverticulitis. No evidence of perforation or abscess. The urinary bladder appears normal. BONES: Unremarkable IMPRESSION: Scattered diverticulosis with mucosal thickening and inflammatory change in the region of the descending/sigmoid colon worrisome for early diverticulitis. No evidence of perforation or abscess. GI consultation recommended. No acute abdominal aortic pathology. Moderate size retrocardiac hiatal hernia. Signed by: Dr. Harpreet Morgan M.D. on 06/17/2020 7:05 PM
[2020-06-17] MEDS ORDERED: ONDANSETRON HCL INJ 2MG/ML 2ML 2 MG/ML VIAL IV PRN (19:15)
[2020-06-17] MEDS ORDERED: MORPHINE SULFATE INJ 4 MG/ML INJ 1ML IV PRN (19:15)
[2020-06-17] MEDS ORDERED: SODIUM CHLORIDE FLUSH 10 ML SYR INJ PRN (19:15)
--- OUTSIDE RECORDS SUMMARY | 2020-06-17 19:42 | XMS REPORT | Continuity of Care Document ---
Author Author [facility] t Organization [facility] Address [address] [place] [address] Phone Unavailable Care Team Providers Care Chief Science Officer Name Role Phone SON BEEBE Unavailable DR Jaison GTZ Unavailable SANARicky KOTHARI Unavailable DR Jaison GTZ Unavailable Payers Payer Name Policy Type Policy Number Effective Date Expiration Date S ource Problems This patient has no known problems. Allergies, Adverse Reactions, Alerts Allergy Name Allergy Type Status Severity Reaction(s) Onset Date Inacti ve Date Treating Clinician Comments Source No Known Allergies DA Active U 2020-05-29 00:00:00 [facility] Penicillins DA Active U 2018-06-23 00:00:00 [facility] Penicillins DA Active U 2016-11-09 00:00:00 [facility] Medications This patient has no known medications. Procedures This patient has no known procedures. Encounters Start Date/Time End Date/Time Encounter Type Admission Type [facility] Care Department Encounter ID Source 2020-06-15 13:27:00 2020-06-15 17:03:00 Outpatient E LEODAN GTZ [facility] [id number] [facility] Results Test Description Test Time Test Comments Results Result Comments Source CTA ABD/PELVIS 2020-06-17 18:54:00 [facility] 1945 Sex: M [facility] [address] [address] Patient Name: CARSON DEE MR #: [id number] : 1945 Age/Sex: 74/M Req #: [id number] Adm Physician: Ordered by: SON BEEBE DO Report #: [id number] Location: ER Room/Bed: Procedure: [id number] CT/CTA ABD/PELVIS Exam Date: 06/17/20 Exam Time: 1810 REPORT STATUS: Signed EXAM: CTA OF THE ABDOMINAL AORTA AND PELVIC ARTERIES with and without IV contrast INDICATION: Rectal bleeding. Abdominal pain. Bright red blood per rectum. Left lower quadrant and flank pain. History of ulcer. COMPARISON: None. TECHNIQUE: Multi- detector CT technology was employed. CTA of the abdomen and pelvis was performed before and after the administration of IV contrast. IV CONTRAST: 100 mL of Isovue-370 ORAL CONTRAST: None COMPLICATIONS: None RADIATION DOSE: Total DLP: 2394 mGy*cm Estimated effective dose: (DLP x 0.015 x size factor) mSv C TDIvol has been reviewed. It is below the limits set by the Radiation Protocol Committee (RPC). For optimization of anatomic evaluation, multiplanar reconstruction, maximum intensity projections, and advanced 3-D off-line postprocessing were performed on a dedicated stand-alone workstation under the direct supervision of the interpreting physician. FINDINGS: Potential study limitations: None. VASCULAR WITH ADVANCED 3-D OFF-LINE POSTPROCESSING: No Abdominal aortic aneurysm is seen. The abdominal aorta is normal in course, caliber, and contour. There is no acute aortic pathology . Aortic plaques: Mild. The abdominal aorta measures: 2.8 cm at the supramesenteric segment 2.7 cm at the mesenteric segment 2.1 cm at the renal segment 1.8 cm at the mid infrarenal segment 1.6 cm at the aortic bifurcation. The celiac axis, SMA, and KARISHMA are patent. There are single renal arteries bilaterally, both of which appear patent. The pelvic ar teries are normal in caliber and contour. There are mild atherosclerotic changes of the pelvic arteries. 1.2 cm at the right common iliac artery 0.9 cm at the right external iliac artery 1.2 cm at the left common iliac artery 0.9 cm at the left external iliac artery LOWER CHEST: Moderate size retrocardiac hiatal hernia. Mild chronic appearing change at the lung bases. ABDOMEN: Hypodensities scattered throughout the liver likely due to simple cysts. Hypodensities in the kidneys likely due to simple cysts. Fatty atrophy of the pancreas. The gallbladder and spleen appear normal. The adrenal glands appear normal. Both kidneys are normal in size, shape, and density. There is no abnormal mass or hydronephrosis. PELVIS: There is no significant retroperitoneal adenopathy. No free fluid or free air within the abdomen or pelvis. Scattered diverticulosis with mucosal thickening and inflammatory change in the region of the descend ing/sigmoid colon worrisome for early diverticulitis. No evidence of perforation or abscess. The urinary bladder appears normal. BONES: Unremarkable IMPRESSION: Scattered diverticulosis with mucosal thickening and inflammatory change in the region of the descending/sigmoid colon worrisome for early diverticulitis. No evidence of perforation or abscess. GI consultation recommended. No acute abdominal aortic pathology. Moderate size retrocardiac hiatal hernia. Signed by: Dr. Venecia Morgan M.D. on 06/17/2020 7:05 PM Dictated By: VENECIA MORGAN MD, MD ectronically Signed By: VENECIA MORGAN MD, MD on 06/17/201904 Transcribed By: ESTUARDO on 06/17/20 1905 COPY TO: SON BEEBE DO CHEST SINGLE (NOT PORTABLE) 2020-06-17 17:44:00 [facility] 1945 Sex: M [address] [address] Patient Name: CARSON DEE MR #: [id number] : 1945 Age/Sex: 74/M Req #: [id number] Adm Physician: Ordered by: SON BEEBE DO Report #: [id number] Location: ER Room/Bed: Procedure: [id number] DX/CHEST SINGLE (NOT PORTABLE) Exam Date: 06/17/20 Exam Time: 1724 REPORT STATUS: Signed EXAMINATION: CHEST SINGLE (NOT PORTABLE) INDICATION: Rectal bleeding. Upper abdominal discomfort ERMD ORDER [id number] 1724 Y COMPARISON: None FINDINGS: TUBES and LINES: None. LUNGS: Lungs are well inflated. Lungs are clear. There is no evidence of pneumonia or pulmonary edema. PLEURA: No pleural effusion or pneumothorax. HEART AND MEDIASTINUM: The cardiomediastinal silhouette is unremarkable. BONES AND SOFT TISSUES: No acute osseous lesion. Soft tissues are unremarkable. UPPER ABDOMEN: Suspected retrocardiac hiatal hernia. IMPRESSION: Suspected retrocardiac hiatal hernia. Signed by: Dr. Venecia Morgan M.D. on 06/17/2020 5:44 PM Dictated By: VENECIA MORGAN MD, MD 43 Transcribed By: ESTUARDO on 06/17/201743 COPY TO: SON BEEBE DO CBC (INCLUDES AUTOMATED DIFFERENTIAL) * 2020-06-15 16:49:00 [...] <235 ng/mL D-DU* GENERAL CHEMISTRY 13 *OW* [id number] 14:20:00* Test Item Value Reference Range Interpretation [...] <0.050 ng/mL 0.000-0.050 MetyLyte 8 Panel *OW* [id number] 14:08:00* Test Item Value Reference Range Interpretation [...] 5.4 % 0.0-10.0 - CT ABD PELVIS W/[id number] 21:13:00 Name: CARSON DEE [facility] : 1945 Age/S: 74 / M [address] [facility] Unit #: [id number] Loc: [place] [address] Phys: Tripp Da Silva MD Acct: [id number] Dis Date: Status: REG ER PHONE #: [phone] Exam Date: 05/29/20202057 FAX #: [phone] Reason: RLQ pain EXAMS: CPT CODE: [id number] CT ABD PELVIS W/CONT 34229 REASON FOR EXAM: RLQ pain EXAM ORDER [...] 1 Signed Report (CONTINUED) Name: CARSON DEE [facility] : 1945 Age/S: 74 / M [address] Unit #: [id number] Loc: [place] [address] Phys: Tripp Da Silva MD Acct: [id number] Dis Date: Status: R EG ER PHONE #: [phone] Exam Date: 05/06 FAX #: [phone] Reason: RLQ pain EXAMS: CPT CODE: [id number] CT ABD PELVIS W/CONT 7 4177 <Continued> CC: Etienne Iqbal DO; Tripp Da Silva MD Technologist:Grecia Paul RT(R); ADRIAN Carter CTDI: DLP: Trnscb Date/Time: 05/29/2020 (2112) t.NAS.VTL Orig Print D/T: S: 05/29/2020 (2115) PAGE 2 Signed Report - CT ABD PELVIS W/[id number] 21:13:00 Name: CARSON DEE [facility] : 1945 Age/S: 74 / M [address] Unit #: [id number] Loc: [place] [address] Phys: Tripp Da Silva MD Acct: [id number] Dis Date: Status: DEP ER PHONE #: [phone] Exam Date: 05/29/20202057 FAX #: [phone] Reason: RLQ pain EXAMS: CPT CODE: [id number] CT ABD PELVIS W/CONT 10480 REASON FOR EXAM: RLQ pain EXAM ORDER [...] diverticulosis without evidence of acute diverticulitis at 2112 Reported and signed by: Pato Liz M.D. PAGE 1 Signed Report (CONTINUED) Name: CARSON DEE [facility] : 1945 Age/S: 74 / M [address] [facility] Unit #: [id number] Loc: [place] [address] Phys: Tripp Da Silva MD Acct: [id number] Dis Date: Status: D EP ER PHONE #: [phone] Exam Date: 05/06 FAX #: [phone] Reason: RLQ pain EXAMS: CPT CODE: [id number] CT ABD PELVIS W/CONT 7 4177 <Continued> CC: Eitenne Iqbal DO; Tripp Da Silva MD Technologist:Grecia Paul RT(R); ADRIAN Carter CTDI: DLP: Trnscb Date/Time: 05/29/2020 (2112) t.MISHAR.VTL Orig Print D/T: S: 05/29/2020 (2115) PAGE 2 Signed Report BASIC METABOLIC [id number] 20:14:00* Test Item Value Reference Range Interpretation [...] CA) 8.5 mg/dL 8.5-10.1 N HEPATIC FUNCTION [id number] 20:14:00* Test Item Value Reference Range Interpretation [...] reference range due to change in reagent. [id number] 20:14:00* Test Item Value Reference Range Interpretation Comments LIPASE (test code = LIP) 118 U/L 73.0-393.0 N BASIC METABOLIC [id number] 20:07:00* Test Item Value Reference Range Interpretation [...] code = CA) mg/dL 8.5-10.1 HEPATIC FUNCTION [id number] 20:07:00* Test Item Value Reference Range Interpretation [...] TOTAL (test code = ALKP) IUnit/L 45-117 [id number] 20:07:00* Test Item Value Reference Range Interpretation Comments LIPASE (test code = LIP) U/L 73.0-393.0 CBC W/O [id number] 20:01:00* Test Item Value Reference Range Interpretation [...] fL 6.7-11.0 N - XR CHEST 2 [id number] 10:00:00 Name: BIENVENIDO DEE [facility] : 1945 Age/S:73 /M [address] [facility] Unit#:[id number] Loc: [place] [address] Phys: Gerald De Los Santos MD Dis Date: PHONE #: [phone] Status: REG ER FAX #: [phone] Exam Date: 02/12/2019 Reason: cough EXAMS: CPT CODE: [id number] XR CHEST 2 V 78453 HISTORY: Cough. COMPARISON: September 16, 2017. AP [...] Technologist: Nithya Mtz Trnscrpt Data: 02/12/2019 (1000) t.SDR.TH4 Orig Print D/T: S: 02/12/2019 (1003) PAGE [...] BACU) TRACE per HPF NONE URINALYSIS W/O [id number] 11:53:00* Test Item Value Reference Range Interpretation Comments UA MICROSCOPIC NEEDED? (test code = UAMICRO) YES URINALYSIS [id number] 11:41:00* Test Item Value Reference Range Interpretation [...] = WBCU) per HPF 0-5 URINALYSIS W/O [id number] 11:41:00* Test Item Value Reference Range Interpretation Comments UA MICROSCOPIC NEEDED? (test code = UAMICRO) URINALYSIS [id number] 11:41:00* Test Item Value Reference Range Interpretation [...] = WBCU) per HPF 0-5 URINALYSIS W/O [id number] 11:41:00* Test Item Value Reference Range Interpretation Comments UA MICROSCOPIC NEEDED? (test code = UAMICRO) - CT HEAD/BRAIN W/O [id number] 11:10:00 Name: CARSON DEE [facility] : 1945 Age/S: 73 / M [address] [facility] Unit #: [id number] Loc: [place] [address] Phys: Gerald De Los Santos MD Acct: [id number] Dis Date: Status: PRE ER PHONE #: [phone] Exam Date: 11/05/2018 1103 FAX #: [phone] Reason: dizzy EXAMS: CPT CODE: [id number] CT HEAD/BRAIN W/O CONT 95628 HISTORY: Dizziness. COMPARISON: None available. CT brain [...] Mtz CTDI: DLP: Trnscb Date/Time: 11/05/2018 (1110) Kalin.TH4 Orig Print D/T: S: 11/05/2018 (1113) CTDI: DLP: PAGE 1 Signed Report COMPREHENSIVE [...] code = ALKP) 82 U/L 38-126 N [id number] 11:04:00* Test Item Value Reference Range Interpretation Comments TROPONIN-I (test code = TROPI) 0.05 ng/mL 0.00-0.056 N CBC W/AUTO [id number] 11:03:00* Test Item Value Reference Range Interpretation [...] = MDIFF) NO, ONLY SCAN NEEDED DIFFERENTIAL [id number] 11:03:00* Test Item Value Reference Range Interpretation [...] code = PLTMORPH) SIZE VARIABLE CBC W/AUTO [id number] 11:02:00* Test Item Value Reference Range Interpretation [...] = MDIFF) NO, ONLY SCAN NEEDED DIFFERENTIAL [id number] 11:02:00* Test Item Value Reference Range Interpretation Comments STAIN ACCEPTABILITY (test code = STN ACCEPTABLE) HYPOCHROMIA (test code = HYPO) POIKILOCYTOSIS (test code = POIK) ANISOCYTOSIS (test code = ANISO) MICROCYTOSIS (test code = MICR) PLATELET ESTIMATE (test code = PLTEST) PLATELET MORPHOLOGY (test code = PLTMORPH) COMPREHENSIVE METABOLIC [id number] 10:49:00* Test Item Value Reference Range Interpretation [...] TOTAL (test code = ALKP) IUnit/L 45-117 [id number] 10:49:00* Test Item Value Reference Range Interpretation Comments TROPONIN-I (test code = TROPI) ng/mL 0-0.045 CBC W/AUTO [id number] 10:44:00* Test Item Value Reference Range Interpretation [...] = MDIFF) NO, ONLY SCAN NEEDED DIFFERENTIAL [id number] 10:44:00* Test Item Value Reference Range Interpretation Comments STAIN ACCEPTABILITY (test code = STN ACCEPTABLE) CABOT RINGS (test code = CAB) MORPHOLOGY COMMENT (test code = MOC) PLATELET ESTIMATE (test code = PLTEST) PLATELET MORPHOLOGY (test code = PLTMORPH) CBC W/AUTO [id number] 10:44:00* Test Item Value Reference Range Interpretation [...] = MDIFF) NO, ONLY SCAN NEEDED DIFFERENTIAL [id number] 10:44:00* Test Item Value Reference Range Interpretation Comments STAIN ACCEPTABILITY (test code = STN ACCEPTABLE) CABOT RINGS (test code = CAB) MORPHOLOGY COMMENT (test code = MOC) PLATELET ESTIMATE (test code = PLTEST) PLATELET MORPHOLOGY (test code = PLTMORPH) CBC W/AUTO [id number] 10:44:00* Test Item Value Reference Range Interpretation [...] = MDIFF) NO, ONLY SCAN NEEDED DIFFERENTIAL [id number] 10:44:00* Test Item Value Reference Range Interpretation Comments STAIN ACCEPTABILITY (test code = STN ACCEPTABLE) MORPHOLOGY COMMENT (test code = MOC) PLATELET ESTIMATE (test code = PLTEST) PLATELET MORPHOLOGY (test code = PLTMORPH) CBC W/AUTO [id number] 10:44:00* Test Item Value Reference Range Interpretation [...] = MDIFF) NO, ONLY SCAN NEEDED DIFFERENTIAL [id number] 10:44:00* Test Item Value Reference Range Interpretation Comments STAIN ACCEPTABILITY (test code = STN ACCEPTABLE) CABOT RINGS (test code = CAB) MORPHOLOGY COMMENT (test code = MOC) PLATELET ESTIMATE (test code = PLTEST) PLATELET MORPHOLOGY (test code = PLTMORPH) GASTRIC,[id number] 13:43:00 RUN DATE: 05/30/18 [facility] PAGE 1 RUN TIME: 1343 Specimen Inqui ry RUN USER: INTERFACE PATIENT: CARSON DEE ACCT #: [id number] LOC: [facility] U #: [id number] AGE/SX: 72/M ROOM: [facility] RE05/27/18[facility] DR: Joseluis Jang MD : [birth year] BED: B DIS: STATUS: ADM IN TLOC: SPEC #: [id number] RECD: 05/29/18 STATUS: SOUT REQ #: [id number] [place]: 05/28/18 [facility] DR: Carla Jackson MD ENTERED: 05/29/18 SP TYPE: GASTRIC BX OTHR DR: Jasper Shoeamker i, MD, Toby C DOORDERED: GROSS COPIES TO: Jasper Stanford MD [address] [place] [address] Etienne Iqbal DO [address] [place] [address] Carla Jackson MD [address] [place] [address] PROCEDURES: GROSS (05/30/18-1311) TISSUES: ANTRUM - BX CLINICAL HISTORY COLLECTION DATE: 05/28 UPPER GI BLEED FINAL DIAGNOSIS Gastric antrum/body, biopsy: COMPATIBLE WITH REACTIVE GASTROPATHY NEGATIVE FOR INTESTINAL META PLASIA NEGATIVE FOR HELICOBACTER ORGANISMS NEGATIVE FOR MALIGNANCY RRB/alex D 98561, 09765 CONTINU ED ON NEXT PAGE RUN DATE: 05/30/18 [facility] PAGE 2 RUN TIME: 1343 Specimen Inquiry RUN USER: INTERFACE SPEC #: [id number] PAT IENT: CARSON DEE #[id number] (Continued) MACROSCOPIC The specimen is received in formalin, labeled with the pat ient's name, identified as "antrum/body bx", and consists of multiple troy biop sy tissue measuring 0.8 cm in aggregate, entirely submitted for H E and Giemsa stains. GROSS PERFORMED AT [facility] [address] [place] [address] (p)[phone] MICROSCOP IC MICROSCOPIC PERFORMED AT [facility] All of the stains, inclu ding any controls performed, stain appropriately. [facility] [address] [place] [address] (P)[phone] PERFORMING S ITE Diagnosis performed at: [facility], [place] [address] [facility], [place] [id number] S igned SIGNATURE ON FILE Cristopher Peacock 05/30/18 1343 END OF REPORT * *
[2020-06-17] MEDS ORDERED: METRONIDAZOLE 500MG/NS 100ML 100 ML IV SCH (20:15)
[2020-06-17] MEDS ORDERED: METOPROLOL TARTRATE INJ 1 MG/ML VIAL IV PRN (20:30)
[2020-06-17] MEDS ORDERED: TEMAZEPAM 7.5 MG CAP PO PRN (20:30)
[2020-06-17] MEDS ORDERED: ACETAMINOPHEN 325 MG TAB PO PRN (20:30)
--- NOTE | 2020-06-17 21:16 | NUR ---
blood cultures obtained
[2020-06-17] MEDS: SODIUM CHLORIDE 0.9% 1000ML 1,000 ML IV SCH (21:37)
[2020-06-17] MEDS: CIPROFLOXACIN 400 MG/D5W 200ML 200 ML IV SCH (21:37)
--- NOTE | 2020-06-17 22:30 | NUR ---
RECEIVED THE PATIENT IN REPORT.AAOX4.AMBULATES.LLQ ABD.PAIN VOICED3/10.ADMISSION ASSESSMENT DONE.NO RESP.DISTRESS.ORIENTED TO THE UNIT.BED LOCKED AND IN LOWEST POSITION.PHONE AND CALL LIGHT WITHIN REACH.INSTRUCTED TO CALL FOR ASSISTANCE NEEDED.
[2020-06-17 22:41] VITALS: BP 122/71
[2020-06-17 22:45] VITALS: BP 122/71
[2020-06-17 23:00] VITALS: BP 122/71
--- NOTE | 2020-06-17 23:55 | NUR ---
DR.M WALKER CALLED OVER TELEPHONE AND RECEIVED NEW ORDERS.
[2020-06-18] VITALS (7 sets, daily range): BP systolic 102–128; BP diastolic 55–81
--- NOTE | 2020-06-18 00:10 | NUR ---
Bowel preparation started.stool sent to the lab.
[2020-06-18] MEDS ORDERED: BISACODYL 5 MG TAB EC PO ONE ×2 (00:30)
[2020-06-18] MEDS ORDERED: PROTONIX20 MG PO (00:59)
[2020-06-18] MEDS ORDERED: LEVOTHYROXINE112 MCG PO (00:59)
[2020-06-18] MEDS ORDERED: CITRATE OF MAGNESIA 300ML BOTTLE PO ONE ×2 (01:00→05:00)
--- NOTE | 2020-06-18 02:00 | NUR ---
was in the unit to see the patient.
--- NOTE | 2020-06-18 02:11 | NUR ---
MD ANGLE WALKER ORDERED TO STOP BOWEL PREPARATION.
[2020-06-18 03:05] LABS: BILIRUBIN,URINE NEGATIVE (NEGATIVE); CLARITY,URINE CLEAR (CLEAR); COLOR,URINE YELLOW (YELLOW); KETONES,URINE NEGATIVE (NEGATIVE); LEUKOCYTE ESTERASE ,URINE NEGATIVE (NEGATIVE); NITRITE,URINE NEGATIVE (NEGATIVE); PROTEIN,URINE DIPSTICK NEGATIVE (NEGATIVE); URINE UROBILINOGEN 0.2 mg/dL (0.2 - 1)
[2020-06-18 03:14] LABS: BACTERIA,URINE FEW /HPF; EPITHELIAL CELLS,URINE RARE /LPF; WBC,URINE (MAN) 0-5 /HPF (0-5)
--- NOTE | 2020-06-18 03:42 | History and Physical ---
PRIMARY CARE PHYSICIAN: Etienne Iqbal DO CONSULTING PHYSICIANS: 1. Dr. Rubin Bueno with Pulmonology/Critical Care Medicine. 2. Dr. Tony Roberts with Gastroenterology. CHIEF COMPLAINT: Abdominal pain with diarrhea. HISTORY OF PRESENT ILLNESS: The patient is a 74-year-old male with long-standing history of peptic ulcer disease that was recently seen at [facility] with negative CT abdomen and pelvis results, and recent acute onset GI bleed 2 days ago. According to documentation by the emergency department physician, he complained of left lower quadrant abdominal pain as well as jade bright red blood per rectum, which are both not new onset, having these off and on for the last 3 years. He reports that he was seen at a hospital in [place] on Friday 06/15 and was discharged. PAST MEDICAL HISTORY: Peptic ulcer disease, hypothyroidism, gastric ulcers, right ulna fracture. PAST SURGICAL HISTORY: Left knee meniscus repair, left ulna fracture repair. FAMILY HISTORY: Mother had cancer of unknown type. Brother had "heart transplant abruptly aborted at [facility]." SOCIAL HISTORY: The patient lives with his and children. 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 He quit smoking 37 years ago. He used to smoke a pack to a oiwm-ppr-i-half a day for 18 years. He drank 4-5 beers per week. Denies any previous illicit drug use. ALLERGIES: PENICILLIN. HOME MEDICATIONS: None listed. REVIEW OF SYSTEMS: A 14-point review of systems was completed and the patient denied any problems. CONSTITUTIONAL: Weight loss, weight gain, fever, or chills. Eyes, ears, nose, throat, respiratory, genitourinary, psychiatric, integumentary, cardiovascular, musculoskeletal, neurologic, endocrine, allergic/immunological or hematologic/lymphatic systems. He wears glasses. Even though found to be hypoxic, he is not short of breath. GASTROINTESTINAL: Bright red blood per rectum off and on for 3 years, left lower quadrant tenderness, onset 3 years ago, but became worse on Monday. Denies any nausea or vomiting. He had 5 diarrhea stools on Monday to yesterday and none today. PHYSICAL EXAMINATION: VITAL SIGNS: Temperature 98.5, pulse 69, blood pressure 113/71, respirations 16, oxygen saturation 100%. Height 5 feet 4 inches. Weight 170 pounds. BMI 29.17. GENERAL: Supine on stretcher, seen in emergency room, bed 11. No acute distress. LUNGS: Clear to auscultation. Respiratory pattern even and unlabored. Currently on oxygen at 2 L/minute via nasal cannula. Able to achieve 2500 mL with incentive spirometry. HEENT: EOMI. Oropharynx clear. NECK: Supple. No lymphadenopathy, thyromegaly, or JVD. CARDIOVASCULAR: Regular rate and rhythm without murmur. ABDOMEN: Bowel sounds positive. Soft, tender in the left lower quadrant. EXTREMITIES: No pitting edema. No clubbing, cyanosis, or signs of DVT. NEUROLOGIC: GCS 15. Nonfocal. LABORATORY DATA: WBCs 10.56, hemoglobin 8.9, hematocrit 31.7, platelets 251, neutrophils 72.5%. Sodium 139, potassium 3.6, chloride 102, CO2 of 27, anion gap 13.6, BUN 10, creatinine 0.86, estimated GFR greater than 60, glucose 102, calcium 8. Total bilirubin 0.3, AST 14, ALT 10, alkaline phosphatase 62, creatine kinase 58, CK-MB 0.5, troponin I 0.004. B-type natriuretic peptide 26.7. Total protein 6.2, albumin 3.1, lipase 21. Ethyl alcohol less than 10. Coronavirus PCR collected at 1839 hours and apparently again at 2012 hours. Both tests are pending. IMAGING: CT/CT angio of abdomen and pelvis showed scattered diverticulosis with mucosal thickening and inflammatory change in the region of the descending/sigmoid colon, worrisome for early diverticulitis. No evidence of perforation or abscess. GI consultation recommended. No acute abdominal aortic pathology, moderate size retrocardiac hiatal hernia. Chest x-ray showed suspected retrocardiac hiatal hernia. Lungs clear. No evidence of pneumonia or pulmonary edema. A 12-lead EKG showed normal sinus rhythm with a heart rate of 89. ASSESSMENT AND PLAN: 1. Acute left lower quadrant abdominal pain. Continue morphine 4 mg IV every 4 hours p.r.n. for pain. The patient currently appears relaxed with pain under control. Gastroenterology has been consulted. 2. Acute diverticulosis, possibly with diverticulitis. The patient is currently on Cipro and Flagyl IV. WBCs 10.5, afebrile. Appreciate recommendations from GI. 3. Chronic gastrointestinal bleed. The patient reports bright red blood per rectum for approximately 3 years along with chronic left lower quadrant abdominal pain. The patient will likely get EGD and/or colonoscopy in the morning. Defer to Gastroenterology. 4. Acute anemia, likely due to gastrointestinal blood loss. Hemoglobin 8.9, hematocrit 31.7. Reassess H and H in the morning. Transfuse if hemoglobin less than 7. 5. Gastroesophageal reflux disease/chronic peptic ulcer disease with probable retrocardiac hiatal hernia. Protonix. Await results from Gastroenterology. 6. Hypoxia, requiring supplemental oxygen. Per the ER physician's note, the patient desaturated to 88% on room air. Continue oxygen at 2 L/minute via nasal cannula and weaned to room air as tolerated. 7. Leukocytosis. WBC 10.5. Reassess in the morning. Afebrile. 8. Prophylaxis. Protonix, SCDs. Inpatient, billing code 21350, time spent 60 minutes. Dictated by Long Stephens NP Kota Maria MD HWP/MODL /[id number]
[2020-06-18] MEDS: METRONIDAZOLE 500MG/NS 100ML 100 ML IV SCH ×3 (05:17→17:03)
--- NOTE | 2020-06-18 05:18 | NUR ---
HAD MULTIPLE TIMES OF BOWEL MOVEMENT.RESTING IN THE BED.LLQ ABD PAIN VOICED 2/.REFUSED PAIN MEDICATION.
[2020-06-18] MEDS: SODIUM CHLORIDE 0.9% 1000ML 1,000 ML IV SCH ×3 (06:09→15:45)
--- NOTE | 2020-06-18 06:16 | NUR ---
CALL PLACED TO REGARDING CONSULTS.
[2020-06-18 06:26] LABS: BASOPHILS % 0.2 % (0.0-1.0); EOSINOPHILS # (AUTO) 0.2 (0.0-0.4); EOSINOPHILS % 1.5 % (0.0-6.0); HEMATOCRIT 33.2 % (38.2-49.6); HEMOGLOBIN 9.4 g/dL (14.0-18.0); LYMPHOCYTES # (AUTO) 1.2 (1.0-3.2); LYMPHOCYTES % 12.2 % (18.0-39.1); MEAN CORPUSCULAR HEMOGLOBIN 21.7 pg (28-32); MEAN CORPUSCULAR HGB CONC 28.3 g/dL (31-35); MEAN CORPUSCULAR VOLUME 76.5 fL (81-99); MONOCYTES # (AUTO) 0.8 (0.2-0.8); MONOCYTES % 7.9 % (4.4-11.3); NEUTROPHILS # (AUTO) 7.6 (2.1-6.9); NEUTROPHILS % 77.6 % (38.7-80.0); PLATELET COUNT 259 x10e3/uL (140-360); RED BLOOD COUNT 4.34 x10e6/uL (4.3-5.7); RED CELL DISTRIBUTION WIDTH 16.4 % (11.7-14.4)
[2020-06-18 06:59] LABS: CREATINE KINASE MB 0.5 ng/mL (0-5.0)
--- NOTE | 2020-06-18 07:04 | NUR ---
Bed side shift report given to oncoming rn.stable condition.
[2020-06-18 07:39] LABS: FERRITIN 29.54 ng/mL (21.81-274.66)
[2020-06-18 07:48] LABS: ALANINE AMINOTRANSFERASE 10 IU/L (0-55); ALBUMIN 3.2 g/dL (3.5-5.0); ALBUMIN/GLOBULIN RATIO 0.9 (0.8-2.0); ALKALINE PHOSPHATASE 62 IU/L (40-150); ANION GAP 13.5 mmol/L (8-16); BLOOD UREA NITROGEN 7 mg/dL (7-26); BUN/CREATININE RATIO 9 (6-25); CALCIUM 8.3 mg/dL (8.4-10.2); CARBON DIOXIDE 27 mmol/L (22-29); CHLORIDE 103 mmol/L (98-107); CREATININE, SERUM 0.78 mg/dL (0.72-1.25); EST GLOMERULAR FILTRATION RATE > 60 ML/MIN (60-); GLUCOSE 114 mg/dL (74-118); POTASSIUM 3.5 mmol/L (3.5-5.1); SODIUM 140 mmol/L (136-145)
[2020-06-18 08:25] LABS: MAGNESIUM 2.2 MG/DL (1.3-2.1); PHOSPHORUS 2.6 MG/DL (2.3-4.7)
[2020-06-18 08:36] LABS: ANISOCYTOSIS SLIGHT; ELLIPTOCYTE, RBC SLIGHT; HYPOCHROMASIA SLIGHT; OVALOCYTES FEW; PLATELET ESTIMATE ADEQUATE; PLATELET MORPHOLOGY COMMENT NORMAL; RBC MORPHOLOGY COMMENT NORMAL
[2020-06-18 08:45] LABS: THYROID STIMULATING HORMONE 0.332 uIU/mL (0.350-4.940)
[2020-06-18] MEDS: FAMOTIDINE 20 MG/2 ML VIAL IV SCH ×2 (09:30→17:03)
[2020-06-18] MEDS: CIPROFLOXACIN 400 MG/D5W 200ML 200 ML IV SCH ×2 (09:30→19:37)
[2020-06-18 11:38] LABS: CREATINE KINASE 45 IU/L (30-200)
--- NOTE | 2020-06-18 12:30 | Consultation ---
DATE OF CONSULTATION: Pulmonary Critical Care Consultation CHIEF COMPLAINT: Transient decrease in oxygen saturation. HISTORY OF PRESENT ILLNESS: The patient is a 74-year-old man. He has a history of gastrointestinal problems and has required hospitalization at several facilities over the past several months for some GI bleeding. He came in to our facility complaining of some lower abdominal pain and some rectal bleeding. He was seen by GI and a CT scan was done. He was started on treatment for diverticulosis. Last night, the patient had some decrease in his oxygen saturation to the high 80s. He did not complain of any cough or difficulty breathing with this. He is not having any shortness of breath. He denies any prior respiratory history. PAST SURGICAL HISTORY: 1. Status post left knee surgery. 2. Status post wrist surgery. PAST MEDICAL HISTORY: 1. Peptic ulcer disease. 2. Hypothyroidism. 3. No prior history of asthma, COPD, or respiratory problems. 4. No prior history of cardiac disease. FAMILY HISTORY: There is a history of cancer. His brother also had a heart transplant. SOCIAL HISTORY: The patient quit smoking many years ago. He occasionally drinks. ALLERGIES: THE PATIENT IS ALLERGIC TO PENICILLIN. REVIEW OF SYSTEMS: He denies any fever. He has no headache. He has no neck pain. He is not having any sore throat. He denies any chest pain. He has no dyspnea. He does have some lower abdominal pain. He has no leg edema. PHYSICAL EXAMINATION: VITAL SIGNS: The patient is afebrile. The blood pressure is 116/60, saturation is 96% on 2 L. HEENT: No facial swelling or erythema. LYMPHATIC: No submandibular, cervical, or supraclavicular adenopathy. CARDIAC: Regular rate and rhythm with normal S1, S2. LUNGS: Auscultation of lungs reveal decreased breath sounds at the bases. There is no wheezing. ABDOMEN: Soft, nontender. There is some mild tenderness in the left lower quadrant. EXTREMITIES: There is no leg edema. LABORATORY DATA: White blood cell count is 9.7, hemoglobin is 9.4, and the platelet count is 259. The BUN to creatinine ratio is normal. The other electrolytes are within normal limits. RADIOGRAPHIC DATA: Chest x-ray shows possible retrocardiac hiatal hernia, but there is no active disease. CT scan of the abdomen and pelvis shows scattered diverticulosis with some inflammatory changes in the descending and sigmoid colon. IMPRESSION: 1. Acute diverticulitis with sepsis, present on admission. 2. Anemia secondary to chronic blood loss. 3. Gastroesophageal reflux. 4. Transient hypoxia that has improved with no symptoms. PLAN: 1. No further evaluation is required for respiratory problems at this time. 2. Continue treatment with IV antibiotics. 3. Continue to follow recommendations of Gastroenterology. MD KENYA Alvarez/MARTÍNEZ /[id number]
[2020-06-18] MEDS ORDERED: CYANOCOBALAMIN INJ 1,000 MCG/ML VIAL IM ONE (23:15)
[2020-06-19] VITALS (8 sets, daily range): BP systolic 111–137; BP diastolic 65–83
[2020-06-19] MEDS: METRONIDAZOLE 500MG/NS 100ML 100 ML IV SCH ×4 (00:12→16:29)
--- NOTE | 2020-06-19 00:17 | NUR ---
06/18/2020 Progress Note dictated; Observation status, billing code [id number], time spent 35 min, job #[id number].
--- NOTE | 2020-06-19 01:27 | Progress Note ---
DATE: CONSULTING PHYSICIANS: 1. Dr. Rubin Bueno with Pulmonology. 2. Dr. Tony Roberts with Gastroenterology. SUBJECTIVE: The patient denies pain specifically, but still has left lower quadrant abdominal tenderness. He seems to be tolerating the clear liquid diet well. I communicated with Dr. Roberts and received approval to go ahead and advance to GI soft. The patient reports he had one diarrheal stool today after Dulcolax. OBJECTIVE: VITAL SIGNS: Temperature 98.4, afebrile, pulse 85, blood pressure 102/55, respirations 18, and oxygen saturation 96%. Per telemetry, normal sinus rhythm with a heart rate of 89. GENERAL: Sitting up in bed, no acute distress. LUNGS: Clear. Respirations even and nonlabored. Currently without supplemental oxygen. HEENT: EOMI. NECK: Supple. CARDIOVASCULAR: Regular rate and rhythm without murmur. ABDOMEN: Bowel sounds positive. Soft, tender in the left lower quadrant. EXTREMITIES: No pitting edema. No clubbing, cyanosis, or signs of DVT. NEUROLOGICAL: GCS 15. Nonfocal. LABORATORY DATA: WBC 9.77, hemoglobin 9.4, hematocrit 33.2, platelets 259. Sodium 140, potassium 3.5, chloride 103, CO2 of 27, BUN 7, creatinine 0.78, estimated GFR greater than 60, glucose 114. Hemoglobin A1c 6.0%. Calcium 8.3, phosphorus 2.6, magnesium 2.2, total bilirubin 0.3, AST 14, ALT 10, alkaline phosphatase 62. Creatine kinase this morning 53 and subsequently 45. CK-MB 0.5 and subsequently 0.5. Troponin I 0.008 and then at 11 o'clock this morning less than 0.001. Total protein 6.6, albumin 3.2. Triglycerides 97, cholesterol 169, LDL 108, HDL 42. TSH 0.332. Urinalysis collected early this morning with pH 6.0, specific gravity 1.01, negative for ketones, small amount of blood, negative for nitrites, negative for leukocyte esterase, rbc's 6-10, wbc's 0-5, few bacteria. Fecal occult blood test collected early this morning was negative. Coronavirus PCR collected 06/17 was negative. Blood cultures have shown no growth after 24 hours. IMAGING: No new imaging results. ASSESSMENT AND PLAN: 1. Acute left lower quadrant abdominal pain. Pain control with morphine 4 mg IV every 4 hours p.r.n. Gastroenterology following. 2. Acute diverticulosis, possibly with diverticulitis as per CT results. Continue Cipro and Flagyl IV as per Gastroenterology recommendations. WBCs 9.77 (10.56). 3. Chronic gastrointestinal bleed. The patient reported BRBPR for about 3 years along with chronic left lower quadrant abdominal pain. The patient will need a colonoscopy electively after six weeks of finishing his antibiotic prescription. 4. Anemia with macrocytic indices. Anemia workup has shown iron level 19, TIBC 375, percent saturation 5, transferrin 268, ferritin 29.54. Vitamin B12 of 157, folate is pending. Fecal occult blood test was negative. Based upon results, iron sucrose (Venofer) IV every 24 hours as well as cyanocobalamin injection IM daily have been ordered by Dr. Roberts. Monitor H and H closely. Hemoglobin 9.4 (8.9), hematocrit 33.2 (31.7). 5. Gastroesophageal reflux disease/chronic peptic ulcer disease with probable retrocardiac hiatal hernia. Continue Protonix. 6. Acute hypoxia. Oxygen saturation now 96% on room air. The patient had desaturated yesterday per ER physician's note, 88% on room air. Monitor oxygen saturation closely and utilize supplemental oxygen p.r.n. 7. Mild acute hypomagnesemia. Magnesium level 2.2. Monitor. 8. Mild acute hypokalemia, potassium level 3.5. Reassess potassium level in the morning. 9. Hypothyroidism. The patient has been on levothyroxine 125 mcg daily at home. On 06/18, TSH was 0.332. We will decrease levothyroxine dosage to 112 mcg daily. 10. Prophylaxis. Protonix, SCDs. Observation status, billing code [id number], time spent 35 minutes. Dictated by Long Stephens, DANK MD MIKAL SinghP/MODL /[id number]
--- NOTE | 2020-06-19 01:31 | NUR ---
Received new orders from .started GI soft diet.no abd.pain voiced.stable condition.
[2020-06-19] MEDS: SODIUM CHLORIDE 0.9% 1000ML 1,000 ML IV SCH ×2 (05:52→19:15)
[2020-06-19] MEDS: LEVOTHYROXINE SODIUM 112 MCG TAB PO SCH (05:52)
[2020-06-19 06:32] LABS: BASOPHILS % 0.5 % (0.0-1.0); EOSINOPHILS # (AUTO) 0.3 (0.0-0.4); EOSINOPHILS % 4.6 % (0.0-6.0); HEMATOCRIT 28.7 % (38.2-49.6); HEMOGLOBIN 8.1 g/dL (14.0-18.0); LYMPHOCYTES # (AUTO) 1.3 (1.0-3.2); LYMPHOCYTES % 22.3 % (18.0-39.1); MEAN CORPUSCULAR HEMOGLOBIN 21.5 pg (28-32); MEAN CORPUSCULAR HGB CONC 28.2 g/dL (31-35); MEAN CORPUSCULAR VOLUME 76.3 fL (81-99); MONOCYTES # (AUTO) 0.6 (0.2-0.8); MONOCYTES % 9.9 % (4.4-11.3); NEUTROPHILS # (AUTO) 3.7 (2.1-6.9); NEUTROPHILS % 62.2 % (38.7-80.0); PLATELET COUNT 247 x10e3/uL (140-360); RED BLOOD COUNT 3.76 x10e6/uL (4.3-5.7); RED CELL DISTRIBUTION WIDTH 16.5 % (11.7-14.4)
[2020-06-19 06:53] LABS: ANION GAP 11.1 mmol/L (8-16); BLOOD UREA NITROGEN 6 mg/dL (7-26); BUN/CREATININE RATIO 8 (6-25); CALCIUM 7.7 mg/dL (8.4-10.2); CARBON DIOXIDE 27 mmol/L (22-29); CHLORIDE 105 mmol/L (98-107); CREATININE, SERUM 0.79 mg/dL (0.72-1.25); EST GLOMERULAR FILTRATION RATE > 60 ML/MIN (60-); GLUCOSE 95 mg/dL (74-118); POTASSIUM 3.1 mmol/L (3.5-5.1); SODIUM 140 mmol/L (136-145)
--- NOTE | 2020-06-19 07:15 | NUR ---
Bed side shift report given to oncoming Rn.stable condition.
[2020-06-19] MEDS: FAMOTIDINE 20 MG/2 ML VIAL IV SCH ×2 (08:34→15:55)
[2020-06-19] MEDS: CYANOCOBALAMIN INJ 1,000 MCG/ML VIAL IM SCH (08:34)
[2020-06-19] MEDS: CIPROFLOXACIN 400 MG/D5W 200ML 200 ML IV SCH ×2 (09:39→19:23)
[2020-06-19] MEDS: IRON SUCROSE 100 MG in SODIUM CHLORIDE 0.9% 100 ML 100 ML IV SCH (10:50)
[2020-06-19] MEDS ORDERED: POTASSIUM CHLORIDE 20 MEQ TAB CR PO ONE (16:30)
--- NOTE | 2020-06-19 19:21 | NUR ---
Report given to oncoming nurse of patient's status. Resting in bed. NO s/s of acute distress noted. Side rails upx2. Call light within reach.
--- NOTE | 2020-06-19 20:07 | NUR ---
Received pt in bed awake and alert, no c/o at this time, bedside report completed. No s/sx of acute distress noted, bed in low and locked position, call carty and personal items within reach. Will cont to mon
[2020-06-20] VITALS: BP 115/68
[2020-06-20] MEDS: METRONIDAZOLE 500MG/NS 100ML 100 ML IV SCH ×3 (00:03→11:53)
[2020-06-20 04:00] VITALS: BP 125/76
[2020-06-20] MEDS: SODIUM CHLORIDE 0.9% 1000ML 1,000 ML IV SCH (05:02)
[2020-06-20] MEDS: LEVOTHYROXINE SODIUM 112 MCG TAB PO SCH (05:03)
[2020-06-20 06:27] LABS: BASOPHILS % 0.4 % (0.0-1.0); EOSINOPHILS # (AUTO) 0.3 (0.0-0.4); EOSINOPHILS % 5.1 % (0.0-6.0); HEMATOCRIT 28.8 % (38.2-49.6); HEMOGLOBIN 8.1 g/dL (14.0-18.0); LYMPHOCYTES # (AUTO) 1.3 (1.0-3.2); LYMPHOCYTES % 25.5 % (18.0-39.1); MEAN CORPUSCULAR HEMOGLOBIN 20.9 pg (28-32); MEAN CORPUSCULAR HGB CONC 28.1 g/dL (31-35); MEAN CORPUSCULAR VOLUME 74.4 fL (81-99); MONOCYTES # (AUTO) 0.6 (0.2-0.8); MONOCYTES % 11.9 % (4.4-11.3); NEUTROPHILS # (AUTO) 2.9 (2.1-6.9); NEUTROPHILS % 56.7 % (38.7-80.0); PLATELET COUNT 256 x10e3/uL (140-360); RED BLOOD COUNT 3.87 x10e6/uL (4.3-5.7); RED CELL DISTRIBUTION WIDTH 16.7 % (11.7-14.4)
[2020-06-20 06:50] LABS: ANION GAP 10.5 mmol/L (8-16); BLOOD UREA NITROGEN 7 mg/dL (7-26); BUN/CREATININE RATIO 9 (6-25); CALCIUM 7.8 mg/dL (8.4-10.2); CARBON DIOXIDE 26 mmol/L (22-29); CHLORIDE 108 mmol/L (98-107); CREATININE, SERUM 0.79 mg/dL (0.72-1.25); EST GLOMERULAR FILTRATION RATE > 60 ML/MIN (60-); GLUCOSE 102 mg/dL (74-118); POTASSIUM 3.5 mmol/L (3.5-5.1); SODIUM 141 mmol/L (136-145)
--- NOTE | 2020-06-20 06:50 | NUR ---
RECEIVED BEDSIDE SHIFT REPORT FROM OFF GOING NURSE. PATIENT IS RESTING IN BED, NO ACUTE DISTRESS NOTED. CALL LIGHT WITHIN REACH. BED IN THE LOWEST POSITION.
[2020-06-20 07:58] VITALS: BP 132/81
--- NOTE | 2020-06-20 08:05 | NUR ---
CIPRO IV NOT AVAILABLE AND SCHEDULED FOR 714. CALLED PHARMACY X2 AND NO ANSWER.
[2020-06-20 08:56] VITALS: BP 132/81
[2020-06-20] MEDS: CIPROFLOXACIN 400 MG/D5W 200ML 200 ML IV SCH (09:19)
[2020-06-20] MEDS: CYANOCOBALAMIN INJ 1,000 MCG/ML VIAL IM SCH (09:20)
[2020-06-20] MEDS: FAMOTIDINE 20 MG/2 ML VIAL IV SCH (09:20)
[2020-06-20] MEDS: IRON SUCROSE 100 MG in SODIUM CHLORIDE 0.9% 100 ML 100 ML IV SCH (10:29)
[2020-06-20 11:42] VITALS: BP 135/75
--- NOTE | 2020-06-20 12:34 | NUR ---
Pt did not want to participate in DPA
--- NOTE | 2020-06-20 15:22 | NUR ---
Notified Dr. Maria is Day 3 obs. He will assess on his rounds
[2020-06-20 16:03] VITALS: BP 111/72
[2020-06-20] MEDS ORDERED: CIPRO500 MG PO (16:13)
[2020-06-20] MEDS ORDERED: FERROUS SULFAT325 MG PO (16:13)
--- NOTE | 2020-06-20 16:35 | NUR ---
RE-EVALUATED PATIENT FOR FLU SHOT, HE REFUSED AT THIS TIME.
--- NOTE | 2020-06-20 16:47 | NUR ---
RECEIVED DISCHARGE ORDER FROM DANK CONKLIN. PATIENT IS IN STABLE CONDITION. IV LINE TO RIGHT FOREARM DISCONTINUED WITH TIP INTACT, PRESSURE APPLIED TO SITE, NO BLEEDING NOTED. TRANSITION OF CARE FOLDER ON HAND WITH DC PAPERWORK, EDUCATION MATERIALS, AND PRESCRIPTION ON HAND. ALL PERSONAL ITEMS ON HAND. PATIENT REFUSED WHEELCHAIR, HE WANTED TO WALK. PATIENT ACCOMPANIED TO PRIVATE AUTO BY STAFF.
--- NOTE | 2020-06-20 18:40 | Discharge Summary ---
PRIMARY CARE PHYSICIAN: Etienne Iqbal DO. CONSULTING PHYSICIAN: 1. Dr. Marcelino Bueno, pulmonary. 2. Dr. Tony Roberts, mobile battery technician. HISTORY OF PRESENT ILLNESS: The patient is a 74-year-old male with past medical history of peptic ulcer, hypothyroidism, and gastric ulcer, who presented to ED on 06/17/2020 with complaints of abdominal pain with diarrhea. As per the patient report, he was most recently seen at [facility] and was diagnosed with peptic ulcer. On arrival to the hospital, his CT scan of abdomen showed scattered diverticulosis with mucosal thickening and inflammatory change in the region of the descending/sigmoid colon, possible early diverticulitis with no evidence of perforation or abscess. Gastroenterology, Dr. Roberts was consulted. He had an EGD done on 06/19/2020 and was found to have diverticulitis. During the hospital stay, the patient also had a lab to investigate iron deficiency anemia and his serum iron was found to be 19, TIBC 375, ferritin 29, vitamin B12 of 157. He also received iron infusion IV x2 and vitamin B12 of 1000 mcg IM x2 doses. He also was given IV Cipro for diverticulitis. No fever or chills reported. The patient is currently cleared for discharge home with Cipro 500 mg b.i.d. for seven more days. PAST MEDICAL HISTORY: Peptic ulcer, hypothyroidism, gastric ulcers, and right ulna fracture. PAST SURGICAL HISTORY: Left knee repair, left ulnar fracture repair. ALLERGIES: THE PATIENT IS ALLERGIC TO PENICILLIN. LABORATORY DATA: His labs on 06/20/2020 show WBC 5.06, hemoglobin 8.1, and hematocrit 28.8. Sodium 141, potassium 3.5, BUN 7, and creatinine 0.79. DIAGNOSES: 1. Diverticulitis. 2. Anemia, iron deficiency. 3. Hypothyroidism. FOLLOWUP: The patient is advised to follow up with primary care physician and GI as an outpatient. Dictated by Linda Herring NP MD DANN Singh/MARTÍNEZ /[id number]
== END 2020-06-20 16:47 | disposition home or self-care (01) ==
LOC: ER 17:10 → INTOOBSV 19:15 → ERHOLD 19:15 → MED/SURG3 22:35
PROVIDERS: ADMIT Internal Medicine; ATTEND Internal Medicine
DX: A41.9 Sepsis, unspecified organism (principal); K57.32 Diverticulitis of large intestine without perforation or abscess without bleeding; K21.9 Gastro-esophageal reflux disease without esophagitis; R09.02 Hypoxemia; D50.0 Iron deficiency anemia secondary to blood loss (chronic); E87.6 Hypokalemia; E03.9 Hypothyroidism, unspecified
CPT/HCPCS: 36415 ×4; 71045; 74174; 80048 ×2; 80053 ×2; 80061; 80320; 81001; 82270; 82550 ×2; 82553 ×2; 82607; 82728; 82746; 83036; 83540; 83690; 83735; 83880; 84100; 84443; 84466; 84484 ×2; 85025 ×4; 85045; 87040; 92526; 92610; 93005; 96360; 96361; G0378 ×4; J0744 ×4; J1756; J3420 ×3; J7030 ×3; J7050; Q9967; U0002

== ENCOUNTER → 2020-07-21 | Day surgery (SDC) | payer MEDICARE ==
[2020-07-17 09:59] LABS: BASOPHILS % 0.3 % (0.0-1.0); EOSINOPHILS # (AUTO) 0.2 (0.0-0.4); EOSINOPHILS % 2.3 % (0.0-6.0); HEMOGLOBIN 11.1 g/dL (14.0-18.0); LYMPHOCYTES # (AUTO) 1.8 (1.0-3.2); LYMPHOCYTES % 28.5 % (18.0-39.1); MEAN CORPUSCULAR HGB CONC 29.2 g/dL (31-35); MEAN CORPUSCULAR VOLUME 78.8 fL (81-99); MONOCYTES # (AUTO) 0.6 (0.2-0.8); NEUTROPHILS # (AUTO) 3.8 (2.1-6.9); NEUTROPHILS % 59.6 % (38.7-80.0); PLATELET COUNT 197 x10e3/uL (140-360); RED BLOOD COUNT 4.82 x10e6/uL (4.3-5.7); RED CELL DISTRIBUTION WIDTH 20.7 % (11.7-14.4)
[~2020-07-21] VITALS: Ht 162.6 cm; Wt 77.1 kg
[~2020-07-21] MED LIST: CENTRUM SILVER1 EAC6 PO; CIPRO500 MG PO; FAMOTIDINE20 MG PO; FENTANYL CITRATE/PF 100MCG/2 ML INJ ONE; FERROUS SULFAT325 MG PO; GLUCAGON FOR INJ 1 MG VIAL ONE; HYOSCYAMINE 0.125 MG TAB ONE; LEVOTHYROXINE112 MCG PO; MIDAZOLAM HCL 2 MG/2 ML VIAL ONE; PROPOFOL IV EMULSION 10 MG/ML 20 ML VIAL ONE; PROTONIX20 MG PO
[2020-07-21 14:25] VITALS: BP 110/70
== END | disposition home or self-care (01) ==
LOC: OR 10:45
PROVIDERS: ATTEND Internal Medicine Gastroenterology
DX: K27.9 Peptic ulcer, site unspecified, unspecified as acute or chronic, without hemorrhage or perforation (principal); K31.7 Polyp of stomach and duodenum; K29.70 Gastritis, unspecified, without bleeding; K52.9 Noninfective gastroenteritis and colitis, unspecified; K44.9 Diaphragmatic hernia without obstruction or gangrene; K31.89 Other diseases of stomach and duodenum; K57.30 Diverticulosis of large intestine without perforation or abscess without bleeding; K63.89 Other specified diseases of intestine; K64.8 Other hemorrhoids; D50.9 Iron deficiency anemia, unspecified; E03.9 Hypothyroidism, unspecified; K57.92 Diverticulitis of intestine, part unspecified, without perforation or abscess without bleeding; R03.0 Elevated blood-pressure reading, without diagnosis of hypertension; Z88.0 Allergy status to penicillin; Z01.810 Encounter for preprocedural cardiovascular examination; Z01.812 Encounter for preprocedural laboratory examination; Z20.828 Contact with and (suspected) exposure to other viral communicable diseases
CPT/HCPCS: 36415; 43239; 45380; 45385; 85025; 88305; 88312; 93005; J1610; J2704; U0002; 45378; 88304; J2250; J3010

== ENCOUNTER 2025-06-15 07:13 | Inpatient (IN) | payer MEDICARE ==
[~2025-06-15] VITALS: Ht 162.6 cm; Wt 77.1 kg
[~2025-06-15 07:13] MED LIST changes: -FENTANYL CITRATE/PF 100MCG/2 ML INJ ONE; -GLUCAGON FOR INJ 1 MG VIAL ONE; -HYOSCYAMINE 0.125 MG TAB ONE; -MIDAZOLAM HCL 2 MG/2 ML VIAL ONE; -PROPOFOL IV EMULSION 10 MG/ML 20 ML VIAL ONE
[2025-06-15 08:12] LABS: BASOPHILS % 0.5 % (0.0-1.0); EOSINOPHILS % 4.2 % (0.0-6.0); LYMPHOCYTES % 20.7 % (18.0-39.1); MONOCYTES % 8.2 % (4.4-11.3); NEUTROPHILS % 65.8 % (38.7-80.0); RED CELL DISTRIBUTION WIDTH 17.4 % (11.7-14.4)
[2025-06-15] MEDS: SODIUM CHLORIDE 0.9% 1000ML 1,000 ML IV ONE (08:13)
[2025-06-15 08:26] LABS: EST GLOMERULAR FILTRATION RATE 78.0 ML/MIN (>=60)
[2025-06-15 09:55] LABS: LEUKOCYTE ESTERASE ,URINE NEGATIVE (NEGATIVE); PROTEIN,URINE DIPSTICK NEGATIVE (NEGATIVE); URINE UROBILINOGEN 0.2 mg/dL (0.2 - 1)
[2025-06-15 09:56] LABS: EPITHELIAL CELLS,URINE FEW /LPF
[2025-06-15 10:00] VITALS: PULSE 61; RESP 17
[2025-06-15] MEDS ORDERED: ONDANSETRON HCL INJ 2MG/ML 2ML 2 MG/ML VIAL IV PRN (10:15)
[2025-06-15] MEDS ORDERED: Morphine 2mg Syringe 2 MG/ML SYR IV PRN (10:15)
[2025-06-15 11:15] VITALS: BP 132/65; PULSE 61; RESP 18; TEMP 97.5; O2SAT 100
[2025-06-15] MEDS: SODIUM CHLORIDE 0.9% 1000ML 1,000 ML IV SCH (11:53)
[2025-06-15 12:09] VITALS: BP 136/71; PULSE 63; RESP 17; O2SAT 97
[2025-06-15 12:23] VITALS: BP 136/71; PULSE 63; RESP 17; O2SAT 97
[2025-06-15 16:00] VITALS: BP 120/66; PULSE 64; RESP 18; TEMP 97.7; O2SAT 99
[2025-06-15 21:00] VITALS: BP 119/69; PULSE 69; RESP 18; TEMP 97.9; O2SAT 99
[2025-06-16 05:48] LABS: BASOPHILS % 0.5 % (0.0-1.0); EOSINOPHILS % 4.8 % (0.0-6.0); LYMPHOCYTES % 19.3 % (18.0-39.1); MONOCYTES % 8.7 % (4.4-11.3); NEUTROPHILS % 66.4 % (38.7-80.0); RED CELL DISTRIBUTION WIDTH 17.6 % (11.7-14.4)
[2025-06-16 06:27] LABS: EST GLOMERULAR FILTRATION RATE 82.0 ML/MIN (>=60)
[2025-06-16 08:00] VITALS: BP 119/62; PULSE 58; RESP 18; TEMP 98.1; O2SAT 98
[2025-06-16 08:37] LABS: INR 1.08
[2025-06-16 09:00] VITALS: BP 119/62; PULSE 58; RESP 18; TEMP 98.1; O2SAT 98
[2025-06-16 12:00] VITALS: BP 136/69; PULSE 60; RESP 18; TEMP 97.4; O2SAT 98
[2025-06-16 16:00] VITALS: BP 125/65; PULSE 59; RESP 18; TEMP 97.8; O2SAT 100
[2025-06-16 16:23] LABS: T3 UPTAKE 31.1 % (22.5-37.0)
[2025-06-16 20:00] VITALS: BP 132/74; PULSE 67; RESP 20; TEMP 98.1; O2SAT 95
[2025-06-17] VITALS (7 sets, daily range): BP systolic 105–129; BP diastolic 68–89; PULSE 59–83; RESP 18–20; TEMP 97.2–98.6; O2SAT 96–100
[2025-06-17] MEDS ORDERED: MELATONIN 3 MG TAB PO PRN (12:15)
[2025-06-17] MEDS ORDERED: MAGNESIUM/ALUMINUM/SIMETHICONE 30 ML UDC PO PRN (12:15)
[2025-06-17] MEDS ORDERED: ACETAMINOPHEN 325 MG TAB PO PRN (12:15)
[2025-06-17] MEDS ORDERED: HYDRALAZINE HCL 20 MG/ML VIAL IV PRN (12:15)
[2025-06-17] MEDS ORDERED: DOCUSATE SODIUM 100 MG CAP PO PRN (12:15)
[2025-06-17] MEDS ORDERED: GUAIFENESIN/DEXTROMETHORPHAN LIQD 5 ML UDC PO PRN (12:15)
[2025-06-18 04:00] VITALS: BP 129/74; PULSE 64; RESP 18; TEMP 98; O2SAT 98
[2025-06-18 06:08] LABS: % IRON SATURATION 4.0 % (15-50)
[2025-06-18 08:35] VITALS: BP 129/74; PULSE 64; RESP 18; TEMP 98; O2SAT 98
[2025-06-18 09:01] VITALS: BP 143/72; PULSE 71; RESP 19; TEMP 98.2; O2SAT 98
[2025-06-18] MEDS: MULTIVITAMINS/MINERALS TAB PO SCH (09:04)
[2025-06-18] MEDS ORDERED: FERROUS SULFAT325 MG PO (11:10)
[2025-06-18] MEDS ORDERED: PANTOPRAZOLE SO40 MG PO (11:10)
[2025-06-18] MEDS ORDERED: AMOX TR-K CLV1 EAC2 PO (11:20)
[2025-06-18 12:32] VITALS: BP 103/77; PULSE 62; RESP 18; TEMP 97.9; O2SAT 98
[2025-06-18] MEDS: IRON SUCROSE 100 MG in SODIUM CHLORIDE 0.9% 100 ML IV ONE (12:55)
[2025-06-18 17:11] LABS: ENDOMYSIAL ANTIBODIES, IGA Negative (Negative)
[2025-06-18 19:28] LABS: TISSUE TRANSGLUTAMINASE IGA AB 2 U/mL (0-3)
== END 2025-06-18 15:08 | disposition home or self-care (01) | DRG 378 ==
LOC: ER 07:18 → ERHOLD 10:07 → MED/SURG2 10:59 → OBSVTOIN 06-17 09:52
PROVIDERS: ADMIT Internal Medicine; ATTEND Internal Medicine
PROC: 0DB98ZX Excision of Duodenum, Via Natural or Artificial Opening Endoscopic, Diagnostic (ICD-10-PCS; 2025-06-17)
PROC: 0DB68ZX Excision of Stomach, Via Natural or Artificial Opening Endoscopic, Diagnostic (ICD-10-PCS; principal; 2025-06-17 12:16)
DX: K57.33 Diverticulitis of large intestine without perforation or abscess with bleeding (principal); C79.51 Secondary malignant neoplasm of bone; N39.0 Urinary tract infection, site not specified; E83.51 Hypocalcemia; D50.0 Iron deficiency anemia secondary to blood loss (chronic); R53.1 Weakness; R31.29 Other microscopic hematuria; I10 Essential (primary) hypertension; E03.9 Hypothyroidism, unspecified; K29.70 Gastritis, unspecified, without bleeding; N40.0 Benign prostatic hyperplasia without lower urinary tract symptoms; K44.9 Diaphragmatic hernia without obstruction or gangrene; Z79.890 Hormone replacement therapy; Z90.49 Acquired absence of other specified parts of digestive tract; Z85.46 Personal history of malignant neoplasm of prostate; Z87.11 Personal history of peptic ulcer disease; Z91.013 Allergy to seafood; Z88.0 Allergy status to penicillin
CPT/HCPCS: 36415; 43239; 74176; 80053; 81001; 82728; 82784; 83516; 83540; 83690; 84436; 84443; 84466; 84479; 85014; 85018; 85025; 85610; 85730; 86140; 86256; 86850; 86900; 87086; 88305; 99284; G0378; J1756; J2270; J2470; J2543; J7030; J7050